=== PATIENT | female | born 1945 | race Caucasian/White ===

== ENCOUNTER 2020-03-18 07:27 | Outpatient (CLI) | payer MEDICARE, SELFPAY ==
[2020-03-18 07:38] LABS: Hematocrit 41.7 % (35.0-42.0); Hemoglobin 14.2 g/dL (11.7-13.8); Mean Corpuscular HGB Conc 34.1 g/dL (32.0-36.0); Mean Corpuscular Hemoglobin 31.3 pg (27.0-31.0); Mean Corpuscular Volume 91.9 fL (78.0-102.0); Platelet Count Result 211 K/mm3 (150-420); Red Blood Count 4.54 M/mm3 (4.20-5.40); White Blood Count 8.2 K/mm3 (4.8-10.8)
[2020-03-18 08:34] LABS: Alanine Aminotransferase 19 U/L (14-59); Albumin Level 3.8 g/dL (3.4-5.0); Alkaline Phosphatase 91 U/L (46-116); Anion Gap 7.3 mmol/L (7-16); Aspartate Amino Transferase 17 U/L (15-37); Bilirubin,Total 0.8 mg/dL (0.00-1.00); Blood Urea Nitrogen 11 mg/dL (7-18); Carbon Dioxide 34 mmol/L (21-32); Chloride 102 mmol/L (98-108); Cholesterol 194 mg/dL (0-200); Estimated Glomerular Filt Rate 60; Glucose 107 mg/dL (70-99); HDL Direct 85 mg/dL (40-60); LDL Cholesterol Calculated 94 mg/dL (<130); Osmolality Calculated 287 mOsm/kg (285-295); Potassium 4.3 mmol/L (3.5-5.1); Sodium 139 mmol/L (136-145); Total Protein 7.2 g/dL (6.4-8.2); Triglycerides 73 mg/dL (0-150)
[2020-03-18 16:29] LABS: Hemoglobin A1C 6.3 % (<5.7)
== END 2020-03-18 07:28 | disposition home or self-care (01) ==
LOC: CHSLAB 07:30
PROVIDERS: PCP Nurse Practitioner Family; Visit Provider Nurse Practitioner Family
DX: I10 Essential (primary) hypertension (principal); E78.5 Hyperlipidemia, unspecified; R73.9 Hyperglycemia, unspecified
CPT/HCPCS: 36415; 80053; 80061; 83036; 85027

== ENCOUNTER 2020-04-23 13:33 | Outpatient (CLI) | payer MEDICARE, MEDICAID, SELFPAY ==
--- NOTE | ~2020-04-23 | MM_ITS ---
EXAMINATION: MM screening [facility] BI w sergio HISTORY: Screening TECHNIQUE: Craniocaudal and mediolateral oblique 3-D tomosynthesis images were obtained and synthetic 2-D images were generated. CAD analysis was submitted and interpreted. COMPARISON: Comparison to multiple prior studies sequentially, with oldest reviewed study dated 03/2014. BREAST PARENCHYMAL COMPOSITION: Breast composed of scattered areas of fibroglandular density FINDINGS: There are benign-appearing bilateral breast calcifications and asymmetries which are not si gnificant change. There is no evidence of suspicious mass, calcification, or architectural distortion to suggest malignancy in either breast. There has been no suspicious interval change. IMPRESSION: 1. No mammographic evidence of malignancy. 2. Recommend routine screening mammography in one year. BI-RADS Category 2: Benign finding(s). Reviewed, dictated and finalized at location A.
== END 2020-04-23 13:34 | disposition home or self-care (01) ==
LOC: CHSIMG 13:35
PROVIDERS: PCP Nurse Practitioner Family; Visit Provider Nurse Practitioner Family
DX: Z12.31 Encounter for screening mammogram for malignant neoplasm of breast (principal)
CPT/HCPCS: 77063; 77067

== ENCOUNTER 2020-06-20 07:30 | Outpatient (CLI) | payer MEDICARE, SELFPAY ==
[2020-06-20 07:56] LABS: Hemoglobin A1C 5.8 % (<5.7)
== END 2020-06-20 07:31 | disposition home or self-care (01) ==
LOC: CHSLAB 07:32
PROVIDERS: PCP Nurse Practitioner Family; Visit Provider Nurse Practitioner Family
DX: R73.9 Hyperglycemia, unspecified (principal)
CPT/HCPCS: 36415; 83036

== ENCOUNTER 2021-04-26 14:22 | Outpatient (CLI) | payer MEDICARE, MEDICAID, SELFPAY ==
--- NOTE | ~2021-04-26 | MM_ITS ---
EXAMINATION: MM screening [facility] BI w sergio HISTORY: Screening TECHNIQUE: Craniocaudal and mediolateral oblique 3-D tomosynthesis images were obtained and synthetic 2-D images were generated. CAD analysis was submitted and interpreted. COMPARISON: Comparison to multiple prior studies sequentially, with oldest reviewed study dated 11/05. BREAST PARENCHYMAL COMPOSITION: There are scattered areas of fibroglandular density. FINDINGS: There is no evidence of suspicious mass, calcification, or architectural distortion to sugg est malignancy in either breast. There has been no suspicious interval change. IMPRESSION: 1. No mammographic evidence of malignancy. 2. Recommend routine screening mammography in one year. BI-RADS Category 2: Benign finding(s). Reviewed, dictated and finalized at location A.
== END 2021-04-26 14:23 | disposition home or self-care (01) ==
PROVIDERS: PCP Nurse Practitioner Family; Visit Provider Nurse Practitioner Family
DX: Z12.31 Encounter for screening mammogram for malignant neoplasm of breast (principal)
CPT/HCPCS: 77063; 77067

== ENCOUNTER 2021-12-10 15:02 | Emergency (ER) | payer MEDICARE, MEDICAID, SELFPAY ==
--- NOTE | ~2021-12-10 | CT_ITS ---
EXAMINATION: CT facial bones wo con DATE: 12/10/2021 15:58 INDICATION: Facial injury and pain TECHNIQUE: Computed tomography (CT) of the facial bones and maxillofacial region was performed withou t intravenous contrast. The dose-length product (DLP) was 283.62 mGy-cm. Automated exposure control a nd iterative reconstruction technique were employed. COMPARISON: None. FINDINGS: There is a left frontal scalp and periorbital soft tissue hematoma. No facial bone fracture is identified. The calvarium is intact. The globes are unremarkable. 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 The visualized cervical spine is unremarkable. There is mild mucosal t hickening of the maxillary sinuses. IMPRESSION: 1. Left frontal scalp and periorbital soft tissue hematoma without facial bone fracture. Reviewed, dictated and finalized at location B.
[2021-12-10 15:05] VITALS: BP 152/64; PULSE 102; RESP 20; TEMP 36.4; O2SAT 98
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
[2021-12-10] MEDS: TETANUS,DIPHTHERIA,AC PERTUSSIS ADULT 0.5 ML (ADACEL) IM (16:04)
[2021-12-10] MEDS: LIDO 1%/EPINEPHRINE 1:100,000 20 ML VIAL INFILTRATE (16:26)
[2021-12-10 16:28] VITALS: BP 148/75; PULSE 74; RESP 20; TEMP 36.3; O2SAT 97
== END 2021-12-10 16:30 | disposition home or self-care (01) ==
PROVIDERS: Emergency Provider Emergency Medicine; PCP Nurse Practitioner Family
DX: S81.012A Laceration without foreign body, left knee, initial encounter (principal); S00.81XA Abrasion of other part of head, initial encounter; W19.XXXA Unspecified fall, initial encounter
CPT/HCPCS: 12001; 70486; 90471; 90715; 99284

== ENCOUNTER 2022-04-29 12:34 | Outpatient (CLI) | payer MEDICARE, MEDICAID, SELFPAY ==
--- NOTE | ~2022-04-29 | MM_ITS ---
EXAMINATION: MM screening [facility] BI w sergio HISTORY: Screening mammogram TECHNIQUE: Craniocaudal and mediolateral oblique 3-D tomosynthesis images were obtained and synthetic 2-D images were generated. CAD analysis was submitted and interpreted. COMPARISON: 04/26/2021, 04/23/2020 bilateral screening mammogram examinations BREAST PARENCHYMAL COMPOSITION: There are scattered areas of fibroglandular density. FINDINGS: Scattered bilateral benign calcifications are again noted. There are 2 stable low-density c ircumscribed approximately 3.5 mm opacities in the posterior upper outer right breast, likely stable benign intramammary lymph nodes. There is no evidence of suspicious mass, calcification, or lead technical architect ural distortion to suggest malignancy in either breast. There has been no suspicious interval change. IMPRESSION: 1. No mammographic evidence of malignancy. 2. Recommend routine screening mammography in one year. BI-RADS Category 2: Benign finding(s). Reviewed, dictated and finalized at location A.
== END 2022-04-29 12:35 | disposition home or self-care (01) ==
LOC: CHSIMG 12:37
PROVIDERS: PCP Nurse Practitioner Family; Visit Provider Nurse Practitioner Family
DX: Z12.31 Encounter for screening mammogram for malignant neoplasm of breast (principal)
CPT/HCPCS: 77063; 77067

== ENCOUNTER 2023-04-01 13:27 | Emergency (ER) | payer MEDICARE, MEDICAID, SELFPAY ==
[2023-04-01 13:28] VITALS: BP 160/63; PULSE 73; RESP 18; TEMP 36.4; O2SAT 96
--- NOTE | 2023-04-01 13:36 | ECG_ITS ---
Measurements Intervals [place] Rate: 83 P: 67 SC: 180 QRS: -17 QRSD: 150 T: 101 QT: 401 QTc: 472 Interpretive Statements SINUS RHYTHM LEFT BUNDLE BRANCH BLOCK [120+ ms QRS DURATION, 80+ ms Q/S IN V1/V2, 85+ ms R IN I/aVL/V5/V6] ABNORMAL ECG NO PREVIOUS ECG AVAILABLE FOR COMPARISON Electronically Signed On 04-03-2023 7:37:17 CDT by Eb Etienne M.D.
[2023-04-01 14:04] LABS: Basophils Absolute Auto 0.05 K/mm3 (0.00-0.10); Basophils Percent Auto 0.5 % (0.0-1.0); Eosinophils Absolute Auto 0.08 K/mm3 (0.02-0.50); Eosinophils Percent Auto 0.8 % (1.0-6.0); Hematocrit 42.6 % (35.0-42.0); Hemoglobin 14.5 g/dL (11.7-13.8); Immature Granulocyte Absolute 0.03 K/mm3 (0.00-0.00); Immature Granulocyte Percent A 0.3 % (0.0-0.0); Lymphocytes Absolute Auto 2.17 K/mm3 (1.10-4.50); Lymphocytes Percent Auto 21.2 % (18.0-42.0); Monocytes Percent Auto 5.9 % (2.0-11.0); Neutrophils Absolute Auto 7.3 K/mm3 (1.7-7.2); Neutrophils Percent Auto 71.3 % (50.0-70.0); Platelet Count Result 196 K/mm3 (150-420); Red Blood Count 4.53 M/mm3 (4.20-5.40); Red Cell Distribution Width 12.2 % (11.6-14.4); White Blood Count 10.2 K/mm3 (4.8-10.8)
[2023-04-01 14:21] LABS: Albumin Level 3.5 g/dL (3.4-5.0); Alkaline Phosphatase 95 U/L (46-116); Anion Gap 9 mmol/L (8-16); Aspartate Amino Transferase 13 U/L (15-37); Bilirubin,Total 0.8 mg/dL (0.00-1.00); Blood Urea Nitrogen 15 mg/dL (7-18); Carbon Dioxide 28 mmol/L (21-32); Chloride 101 mmol/L (98-108); Estimated CRCL calculation 46 ml/min; Estimated Glomerular Filt Rate 59; Glucose 235 mg/dL (70-99); Osmolality Calculated 294 mOsm/kg (285-295); Sodium 138 mmol/L (136-145); Total Protein 6.9 g/dL (6.4-8.2)
[2023-04-01 14:24] LABS: Alanine Aminotransferase < 6 U/L (14-59)
--- NOTE | 2023-04-01 14:26 | ED.GENADULT ---
HPI - General Adult General Chief complaint: Unspecified Stated complaint: Syncope Time Seen by Provider: 04/01/23 13:31 Source: patient and family Mode of arrival: ambulatory Limitations: no limitations History of Present Illness HPI narrative: this is 77-year-old female presents by private car family at her side after she had a syncopal episode lasting less than a minute and immediately returned to baseline with no residual affects no headache no blurry vision no chest pain no shortness breath no fever chills no abdominal pain, no dysuria no hematuria no nausea vomiting no diarrhea or constipation. Patient has a history of hypertension history of diabetes. Her Onset (ago): hour(s) Related Data Allergies Allergy/AdvReac Type Severity Reaction Status Date / Time No Known Allergies Allergy Verified 08/11/22 10:20 Review of Systems Review of Systems: All systems reviewed & are unremarkable except as noted in HPI and below PMFSH Past Medical History Medical History (Updated 04/01/23 @ 14:30 by Eb Stringer MD) HTN (hypertension) Hyperlipidemia Overweight (BMI 25.0-29.9) Seasonal allergies Surgical History Surgical History History of total replacement of right shoulder joint Hx of colonoscopy Family History Family History Mother Family history of coronary artery disease Father Family history of malignant neoplasm of bone Social History Social History Smoking status: Never smoker Tobacco type: cigarettes Alcohol intake: never Substance use: never Substance use type: does not use Lack of Transportation: No Lack of Food: Never True Current Housing: I Have Housing Concerned About Future Housing: No Difficulty Paying Gas/Electric Bills: No Difficulty Paying for Meds: No Currently Unemployed: YES Education: Grade School Difficulty w/ Childcare or Family Care: No Living arrangements: alone Occupation/Education: unemployed Gender identity (if verbalized by the patient): Female Sexual Orientation (if Verbalized by the Patient): Straight or Heterosexual Exam Const: General: cooperative, healthy appearing, comfortable, no acute distress, well developed, alert, awake and Physically active HENMT: Head: normal to inspection Mouth: Yes Normal oral and palatal mucosa present Eyes: General: appearance normal, both eyes and all related structures Periorbital: periorbital findings normal Eyelids: eyelids normal Conjunctivae: conjunctivae normal Sclera: sclerae normal Pupils: Equal, round and reactive pupils present EOM: EOMs intact bilaterally Neck: Neck: normal visual inspection, full ROM, no lymphadenopathy and no meningeal signs Chest: Chest palpation & inspection: normal inspection of the chest and normal palpation of entire chest wall Resp: Effort & Inspection: normal respiratory effort and able to speak in complete sentences Auscultation: clear to auscultation bilaterally Cardio: Jugular venous distension: no JVD Palpation: normal PMI Rate: regular rate Rhythm: regular rhythm Heart sounds: S1 normal heart sound present and S2 normal heart sound present GI: Inspection: normal to inspection : General: Yes bimanual renal exam normal bilaterally Skin: General skin exam: normal color and no rashes or lesions noted Neuro: General: oriented to person, oriented to place and oriented to time Extrem: General: normal to inspection, full ROM and capillary refill normal Psych: Appearance: grossly normal Mental Status: mental status grossly normal Course Course Emergency Course: patient back to her baseline with no residual affect currently no chest pain no shortness of breath labs reviewed an EKG reviewed with patient and family. Vital Signs Vital signs: Vital Signs Temperature 36.4 C 0
[2023-04-01 14:32] VITALS: BP 148/42; PULSE 76; RESP 19; O2SAT 96
== END 2023-04-01 14:40 | disposition home or self-care (01) ==
PROVIDERS: Emergency Provider Emergency Medicine; PCP Nurse Practitioner Family
DX: R55 Syncope and collapse (principal); E11.9 Type 2 diabetes mellitus without complications; I10 Essential (primary) hypertension; E78.5 Hyperlipidemia, unspecified
CPT/HCPCS: 36415; 80053; 83036; 85025; 93005; 99283

== ENCOUNTER 2023-04-11 15:26 | Outpatient (CLI) | payer MEDICARE, SELFPAY ==
[2023-04-16 13:00] LABS: Varicella IgG Antibody <135.00 Index (>=165.00)
== END 2023-04-11 15:27 | disposition home or self-care (01) ==
LOC: CHSLAB 15:28
PROVIDERS: PCP Nurse Practitioner Family; Visit Provider Nurse Practitioner Family
DX: Z01.84 Encounter for antibody response examination (principal)
CPT/HCPCS: 36415; 86787

== ENCOUNTER 2023-05-03 09:21 | Outpatient (CLI) | payer MEDICARE, MEDICAID, SELFPAY ==
--- NOTE | ~2023-05-03 | MM_ITS ---
EXAMINATION: MM screening [facility] BI w sergio HISTORY: Screening TECHNIQUE: Craniocaudal and mediolateral oblique 3-D tomosynthesis images were obtained and synthetic 2-D images were generated. CAD analysis was submitted and interpreted. COMPARISON: Comparison to multiple prior studies sequentially, with oldest reviewed study dated 11/05. BREAST PARENCHYMAL COMPOSITION: Breast composed of scattered areas of fibroglandular density FINDINGS: Stable appearance to benign-appearing right breast masses dating back to 11/05/2018. There i s no evidence of suspicious mass, calcification, or architectural distortion to suggest malignancy in either breast. There has been no suspicious interval change. IMPRESSION: 1. No mammographic evidence of malignancy. 2. Recommend routine screening mammography in one year. BI-RADS Category 2: Benign finding(s). Reviewed, dictated and finalized at location A.
== END 2023-05-03 09:22 | disposition home or self-care (01) ==
LOC: CHSIMG 09:22
PROVIDERS: PCP Nurse Practitioner Family; Visit Provider Nurse Practitioner Family
DX: Z12.31 Encounter for screening mammogram for malignant neoplasm of breast (principal)
CPT/HCPCS: 77063; 77067

== ENCOUNTER 2023-09-20 07:19 | Outpatient (CLI) | payer MEDICARE, SELFPAY ==
[2023-09-20 07:35] LABS: Basophils Absolute Auto 0.04 K/mm3 (0.00-0.10); Basophils Percent Auto 0.5 % (0.0-1.0); Eosinophils Absolute Auto 0.23 K/mm3 (0.02-0.50); Eosinophils Percent Auto 3.1 % (1.0-6.0); Hemoglobin 13.6 g/dL (11.7-13.8); Immature Granulocyte Absolute 0.01 K/mm3 (0.00-0.00); Immature Granulocyte Percent A 0.1 % (0.0-0.0); Lymphocytes Percent Auto 30.5 % (18.0-42.0); Mean Corpuscular HGB Conc 33.2 g/dL (32.0-36.0); Mean Corpuscular Hemoglobin 30.6 pg (27.0-31.0); Mean Corpuscular Volume 92.3 fL (78.0-102.0); Mean Platelet Volume 10.1 fl (9.2-11.8); Monocytes Absolute Auto 0.72 K/mm3 (0.10-0.90); Monocytes Percent Auto 9.5 % (2.0-11.0); Neutrophils Absolute Auto 4.2 K/mm3 (1.7-7.2); Neutrophils Percent Auto 56.3 % (50.0-70.0); Platelet Count Result 201 K/mm3 (150-420); Red Blood Count 4.44 M/mm3 (4.20-5.40); Red Cell Distribution Width 12.2 % (11.6-14.4); White Blood Count 7.5 K/mm3 (4.8-10.8)
[2023-09-20 07:44] LABS: Hemoglobin A1C 5.7 % (<5.7)
[2023-09-20 08:16] LABS: Alanine Aminotransferase 21 U/L (14-59); Albumin Level 3.5 g/dL (3.4-5.0); Alkaline Phosphatase 95 U/L (46-116); Anion Gap 7 mmol/L (8-16); Aspartate Amino Transferase 13 U/L (15-37); Bilirubin,Total 0.8 mg/dL (0.00-1.00); Blood Urea Nitrogen 14 mg/dL (7-18); Calcium 8.7 mg/dL (8.5-10.1); Carbon Dioxide 31 mmol/L (21-32); Chloride 101 mmol/L (98-108); Cholesterol 198 mg/dL (0-200); Estimated Glomerular Filt Rate > 60; Glucose 100 mg/dL (70-99); HDL Direct 104 mg/dL (40-60); LDL Cholesterol Calculated 83 mg/dL (<130); Osmolality Calculated 288 mOsm/kg (285-295); Sodium 139 mmol/L (136-145); Triglycerides 57 mg/dL (0-150)
[2023-09-22 12:22] LABS: Vitamin D 25 Hydroxy 22 ng/mL (30-100)
== END 2023-09-20 07:20 | disposition home or self-care (01) ==
LOC: CHSLAB 07:20
PROVIDERS: PCP Nurse Practitioner Family; Visit Provider Nurse Practitioner Family
DX: E78.5 Hyperlipidemia, unspecified (principal); Z13.6 Encounter for screening for cardiovascular disorders; E11.9 Type 2 diabetes mellitus without complications; I10 Essential (primary) hypertension; Z79.899 Other long term (current) drug therapy
CPT/HCPCS: 36415; 80053; 80061; 82306; 83036; 85025

== ENCOUNTER 2023-10-12 13:18 | Outpatient (CLI) | payer MEDICARE, MEDICAID, SELFPAY ==
--- NOTE | ~2023-10-12 | DEXA_ITS ---
Bone Density Report Name: YUNIOR ALVAREZ Age: 78 Sex: Female Ethnicity: White Date of : 1945 Indication: postmenopausal; screening for osteoporosis; height loss; Referring Provider: Mikaela Gardner Study: Bone densitometry was performed. Exam Date: October 12, 2023 Accession number: [id number] Bone Density: Region BMD T-score Z-score Classification AP Spine(L2, L3, L4) 0.940 -1.3 1.3 Osteopenia Femoral Neck (Left) 0.626 -2.0 0.2 Osteopenia Total Hip (Left) 0.655 -2.3 -0.5 Osteopenia Femoral Neck (Right) 0.653 -1.8 0.4 Osteopenia Total Hip (Right) 0.708 -1.9 0.0 Osteopenia Femoral Neck Mean 0.640 -1.9 0.3 Osteopenia Total Hip Mean 0.681 -2.1 -0.2 Osteopenia World Health Organization criteria for BMD impression classify patients as: Normal (T-score at or above -1.0), Osteopenia (T-score between -1.0 and -2.5), or Osteoporosis (T-score at or below -2.5). 10-year Fracture Risk(1): Major Osteoporotic Fracture 13% Hip Fracture 3.5% Reported Risk Factors: [place] (), Neck BMD=0.626, BMI=22.4 (1) FRAX(R) Version 3.08. Fracture probability calculated for an untreated patient. Fracture probability may be lower if the patient has received treatment. Clinical Information Provided by Patient: Has used the following medications: Vitamin D Patient maximum height was 69 Menopause Age: 51 No regular weight bearing exercise Drinks caffeinated beverages Onset of menses at age 15 Number of children 0 Impression: The patient has low bone mass, based on the Left Total Hip T-score. Discussion: BONE DENSITY IS LOW AT ONE OR MORE SKELETAL SITES. This patient's lowest T-score is low at one or more skeletal sites. It meets the World Health Organization's (WHO) criteria for ?low bone mass? (T-score between -1.0 and -2.5). The patient's 10-year risk of fracture as calculated by FRAX is less than the threshold where pharmacological therapy is recommended by the National Osteoporosis Foundation (NOF). However, all treatment decisions require clinical judgment and consideration of individual patient factors, including patient preferences, comorbidities, previous drug use, risk factors not captured in the FRAX model (e.g., frailty, falls, vitamin D deficiency, increased bone turnover, interval significant decline in bone density) and possible under or overestimation of fracture risk by FRAX. The patient should follow a healthful lifestyle (good nutrition with adequate calcium and vitamin D, and appropriate weight-bearing exercise). Follow-Up: Consider repeating this study in 2 to 3 years to reassess this patient's status, or sooner if there is some new clinical indication. Reported by: Dr. Sylvester Chaudhry on 10/12/2023 1:40:00 PM. Reviewed, dictated and finalized at location A.
== END 2023-10-12 13:19 | disposition home or self-care (01) ==
LOC: CHSIMG 13:19
PROVIDERS: PCP Nurse Practitioner Family; Visit Provider Nurse Practitioner Family
DX: Z78.0 Asymptomatic menopausal state (principal); M85.89 Other specified disorders of bone density and structure, multiple sites
CPT/HCPCS: 77080

== ENCOUNTER 2024-05-08 08:15 | Outpatient (CLI) | payer MEDICARE, MEDICAID, SELFPAY ==
--- NOTE | ~2024-05-08 | MM_ITS ---
EXAMINATION: MM screening [facility] BI w sergio HISTORY: Screening TECHNIQUE: Craniocaudal and mediolateral oblique 3-D tomosynthesis images were obtained and synthetic 2-D images were generated. CAD analysis was submitted and interpreted. COMPARISON: Comparison to multiple prior studies sequentially, with oldest reviewed study dated 12/2018. BREAST PARENCHYMAL COMPOSITION: Not dense: There are scattered areas of fibroglandular density. FINDINGS: There is no evidence of suspicious mass, calcification, or architectural distortion to sugg est malignancy in either breast. There has been no suspicious interval change. IMPRESSION: 1. No mammographic evidence of malignancy. 2. Recommend routine screening mammography in one year. BI-RADS Category 1: Negative Reviewed, dictated and finalized at location B.
== END 2024-05-08 08:16 | disposition home or self-care (01) ==
LOC: CHSIMG 08:16
PROVIDERS: PCP Nurse Practitioner Family; Visit Provider Nurse Practitioner Family
DX: Z12.31 Encounter for screening mammogram for malignant neoplasm of breast (principal)
CPT/HCPCS: 77063; 77067

== ENCOUNTER 2024-07-23 14:23 | Emergency (ER) | payer MEDICARE, MEDICAID, SELFPAY ==
[2024-07-23] VITALS (12 sets, daily range): BP systolic 127–155; BP diastolic 54–77; PULSE 62–96; RESP 15–20; TEMP 37.1–37.8; O2SAT 97–100
--- NOTE | ~2024-07-23 | CT_ITS ---
EXAMINATION: CT brain wo con DATE: 07/23/2024 16:13 INDICATION: syncope . TECHNIQUE: Computed tomography (CT) of the head was performed without intravenous contrast. The mA wa s adjusted according to patient size. Iterative reconstruction technique was employed. The dose-lengt h product was 681.00 mGy-cm. COMPARISON: CT face 12/10/21. FINDINGS: No acute intracranial hemorrhage. 7 mm hyperdensity extra-axial focus anterior to the left frontal lo be. No hydrocephalus, mass, or herniation. No acute ischemic infarct. Unremarkable dural venous sinus attenuation. No acute osseous abnormality. The aerated spaces are clear. Mild atrophy and chronic white matter change. Atherosclerotic intracranial calcification. IMPRESSION: Small volume subarachnoid hemorrhage anterior to the left frontal lobe. Results reported telephonically to Dr. Ferguson by Dr. Bernard at 4:21 PM on 07/23/2024. Reviewed, dictated and finalized at location K. NG CONSULTANT IMPRESSION: Small volume subarachnoid hemorrhage anterior to the left frontal lobe. Results reported telephonically to Dr. Ferguson by Dr. Bernard at 4:21 PM on 2023.
--- NOTE | ~2024-07-23 | XR_ITS ---
EXAMINATION: XR chest 2V Exam Date/Time: 07/23/2024 16:00 ADMISSIONS DEAN HISTORY: syncopal episode Comparison: None. RESULT: Lines, tubes, and devices: Partially visualized right shoulder hardware. Lungs and pleura: Senescent change, clear. Cardiomediastinal silhouette: Stable. Other: No acute osseous or upper abdominal finding. IMPRESSION: No acute cardiopulmonary process. Reviewed, dictated and finalized at location K. SSIONS DEAN
--- NOTE | 2024-07-23 15:31 | ED.SYNCOPE ---
HPI - Syncope General Chief Complaint: Syncope Stated Complaint: passed out while sitting in chair Time Seen by Provider: 07/23/24 15:24 Source: patient and family (sister) Mode of arrival: ambulatory Limitations: no limitations History of Present Illness HPI narrative: 78 year old female is brought to the Emergency Department by sister. Sister is primary historian. Sister states patient was sitting at table playing cards and suddenly had blank stare and was not responding and then had syncopal episode. States lasted approximately 5 minutes. Denies any symptoms prior to occurrence. Denies chest pain, shortness of breath, headache, visual changes. No recent illness. No nausea, vomiting, diarrhea. Sister states had a similar occurrence in September and PCP advised was caused by pre-diabetes. Patient has had no history of DKA or hypoglycemia. No history of seizures, TIA, cardiac arrhythmia. MD complaint: loss of consciousness Duration of episode: 5 -: minutes(s) Prodromal symptoms: none Witnessed: Yes - by Bystander Context: at rest (sitting at table playing cards) Injuries sustained associated with event: none Current symptoms: none Related Data Allergies Allergy/AdvReac Type Severity Reaction Status Date / Time No Known Allergies Allergy Verified 07/23/24 14:52 Review of Systems Review of Systems: All systems reviewed & are unremarkable except as noted in HPI and below Constitutional: Constitutional: Reports as per HPI, Denies chills, Denies fatigue, Denies fever(s) and Denies weakness Eyes: Eyes: Reports as per HPI and Denies change in vision ENT: Reports system reviewed and no additional complaints, except as documented, Denies vertigo, Denies dizziness and Denies sore throat Cardiovascular: Cardiovascular: Reports as per HPI, Reports no additional cardiovascular complaints, Denies chest pain, Denies rapid heart rate and Denies slow heart rate Respiratory: Respiratory: Reports as per HPI, Reports no additional respiratory complaints, Denies chest congestion, Denies cough and Denies dyspnea Gastrointestinal: Gastrointestinal: Reports as per HPI, Reports no additional gastrointestinal complaints, Denies abdominal pain, Denies constipation, Denies diarrhea, Denies nausea and Denies vomiting Genitourinary: Genitourinary: Reports no additional female genitourinary complaints, Denies hematuria, Denies nocturia and Denies dysuria Musculoskeletal: Musculoskeletal: Reports no additional musculoskeletal complaints and Denies myalgias Integumentary/Breasts: Skin/Breast: Reports system reviewed and no additional complaints, except as docu Neurologic: Reports system reviewed and no additional complaints, except as documented, Reports as per HPI, Denies confusion, Denies vertigo, Denies dizziness, Reports syncope, Denies headache(s), Denies focal weakness, Denies numbness and Denies weakness Psychiatric: Psychiatric: Reports no additional psychiatric complaints Endocrine: Endocrine: Reports no additional endocrine complaints Hematologic/Lymphatic: Hematologic/Lymphatic: Reports no additional hematologic/lymphatic complaints Allergic/Immunologic: Allergic/Immunologic: Reports no additional allergic/immunologic complaints PMFSH Past Medical History Medical History (Updated 07/23/24 @ 18:16 by Fausto Ferguson MD) Overweight (BMI 25.0-29.9) Seasonal allergies Hyperlipidemia HTN (hypertension) Surgical History Surgical History Hx of colonoscopy History of total replacement of right shoulder joint Family History Family History Mother Family history of coronary artery disease Father Family history of malignant neoplasm of bone Sibling Cerebrovascular accident Social History Social History Smoking status: Never smoker Tobacco type: cigarettes Alcohol intake: never Substance use: never Substance use type: does not use Lack of Transportation: No Lack of Food: Never True Current Housing: I Have Housing Concerned About Future Housing: No Difficulty Paying Gas/Electric Bills: No Difficulty Paying for Meds: No Currently Unemployed: YES Education: Grade School Difficulty w/ Childcare or Family Care: No Living arrangements: alone Occupation/Education: unemployed Gender identity (if verbalized by the patient): Female Sexual Orientation (if Verbalized by the Patient): Straight or Heterosexual Exam Const: General: healthy appearing, no acute distress and alert Nutritional Appearance: well nourished Orientation/consciousness: patient oriented x3 Limitations: no limitations HENMT: Head: normal to inspection Ears: external ears normal Face/Nose/Sinus: Normal external nose present Face and sinus: normal facial exam Mouth: Yes Normal oral and palatal mucosa present Throat: posterior oropharynx normal Eyes: Conjunctivae: conjunctivae normal Pupils: Equal, round and reactive pupils present EOM: EOMs intact bilaterally Direct Ophthalmoscopy: no photophobia Neck: Neck: normal visual inspection and no meningeal signs Other: no JVD or bruit Chest: Chest palpation & inspection: normal inspection of the chest Resp: Effort & Inspection: normal respiratory effort Auscultation: clear to auscultation bilaterally Cardio: Rate: regular rate Rhythm: regular rhythm Heart sounds: no murmurs GI: Inspection: non-distended : General: Yes bladder normal to palpation Back/Spine/Pelvis: Back: no CVA tenderness Skin: General skin exam: normal color Rashes: no rashes Neuro: General: patient oriented x3, moves all extremities, no meningeal signs, no focal motor deficits and CN's II-XI intact bilaterally Cranial nerves: Yes Nystagmus not present Speech: normal speech Gait exam (Neuro): Normal gait present Extrem: General: normal to inspection and no clubbing, cyanosis or edema Psych: Mental Status: mental status grossly normal Course Course Emergency Course: 78 y/o female is brought to the ED by sister. Patient was sitting at card table playing cards and had a blank stare and then syncopal episode. Episode lasted 5 minutes per sister. Patient denies any symptoms prior and denies any symptoms now. Sister states had a similar episode in Sep 2023 and was told was due to pre-diabetes. PE: no acute findings CBC: H/H 14.6/42.4, Plt 153; wbc 8.3 with 82 S, 7 L, 10 M CMP: Na 133, K 3.9, Cl 94, CO2 28, Glc 124, BUN 12, Cr 0.79; LFT's normal TNI: 15.9 EKG: NSR, 87, diffuse IVCD, NSST Lactic: 1.6 D-dimer: 0.24 UA: 11-20 rbc, 3+ blood, 1+ bacteria CXR: NAD CT Head: small volume 7 mm hyperdensity [SAH] anterior to left frontal lobe Tx: media monitor, pulse ox, saline lock. ([id number]) [facility] transfer contacted. ([id number]) Discussed with Dr. Curtis (Neuro). Report given and patient accepted for transfer and admission to [address] [place] [address] at [facility]. Would like me to give report to Dr. Rudd (Neurosurgery) ([phone]) Bed assigned at [facility], report called, EMS notified of transfer *no EMS available for over 6 hours to transfer. [facility] contacted and will come and transfer. Vital Signs Vital signs: Vital Signs Temperature 37.2 C 07/23/24 14:23 Pulse Rate 86 07/23/24 14:23 Respiratory Rate 20 07/23/24 14:23 Blood Pressure 154/64 H 07/23/24 14:23 Pulse Oximetry 100 07/23/24 14:23 Oxygen Delivery Room Air 07/23/24 14:23 Temperature 37.8 C H 07/23/24 19:55 Pulse Rate 74 07/23/24 19:55 Respiratory Rate 16 07/23/24 19:55 Blood Pressure 146/62 H 07/23/24 19:55 Pulse Oximetry 99 07/23/24 19:55 Oxygen Delivery Room Air 07/23/24 19:55 Transfer Transfered to: Other ([facility]) Transportation: ALS Transfer rationale: Further evaluation and monitoring Evaluation by Neuro /Neurosurgery Accepting physician: Dr. Curtis MDM - Syncope Lab Data 07/23/24 16:32 07/23/24 16:31 Labs: Lab Results 07/23/24 07/23/24 07/23/24 Range/Units 15:51 16:31 16:32 WBC 8.3 (4.8-10.8) K/mm3 RBC 4.61 (4.20-5.40) M/mm3 Hgb 14.6 H (11.7-13.8) g/dL Hct 42.4 H (35.0-42.0) % MCV 92.0 (78.0-102.0) fL MCH 31.7 H (27.0-31.0) pg MCHC 34.4 (32-36) g/dL RDW 12.0 (11.6-14.4) % Plt Count 153 (150-420) K/mm3 MPV 9.7 (9.2-11.8) fl Immature Gran % (Auto) 0.2 H (0.0-0.0) % Neut % (Auto) 81.7 H (50.0-70.0) % Lymph % (Auto) 7.1 L (18.0-42.0) % [place] % (Auto) 10.5 (2.0-11.0) % Eos % (Auto) 0.1 L (1.0-6.0) % Baso % (Auto) 0.4 (0.0-1.0) % Lymph # (Auto) 0.59 L (1.10-4.50) K/mm3 [place] # (Auto) 0.87 (0.10-0.90) K/mm3 Eos # (Auto) 0.01 L (0.02-0.50) K/mm3 Baso # (Auto) 0.03 (0.00-0.10) K/mm3 Abs Immat Gran (auto) 0.02 H (0.00-0.00) K/mm3 Absolute Neuts (auto) 6.80 (1.70-7.20) K/mm3 Absolute Nucleated RBC 0.00 (0.00-0.00) K/mm3 Nucleated RBC % 0.0 (0-0.0) % D-Dimer 0.24 (0.19-0.50) mg/L Sodium 133 L (136-145) mmol/L Potassium 3.9 (3.5-5.1) mmol/L Chloride 94 L (98-108) mmol/L Carbon Dioxide 28 (21-32) mmol/L Anion Gap 11 (4-12) mmol/L BUN 12 (7-18) mg/dL Creatinine 0.79 (0.55-1.02) mg/dL Estim Creat Clear Calc 50 ml/min Estimated GFR > 60 (59 - ) Glucose 124 H (70-99) mg/dL Calculated Osmolality 276 L (285-295) mOsm/kg Lactic Acid 1.6 (0.4-2.0) mmol/L Calcium 9.4 (8.5-10.1) mg/dL Total Bilirubin 0.7 (0.00-1.00) mg/dL AST 19 (15-37) U/L ALT 18 (14-59) U/L Alkaline Phosphatase 91 (46-116) U/L Troponin I 15.9 (0.00-60.4) ng/L Total Protein 7.7 (6.4-8.2) g/dL Albumin 4.0 (3.4-5.0) g/dL Urine Color Light yellow (Yellow) Urine Appearance Clear (Clear) Urine pH 6.0 (5.0-8.0) Ur Specific [place] 1.010 (1.010-1.020) Urine Protein 1+ H (Negative) Urine Glucose (UA) Negative (Negative) Urine Ketones Negative (Negative) Ur Blood (Man) 3+ H (Negative) Urine Nitrate Negative (Negative) Urine Bilirubin Negative (Negative) Urine Urobilinogen 0.2 (0.2-1.0) mg/dL Ur Leukocyte Esterase Negative (Negative) Urine RBC 11-20 H (0-2) /hpf Urine WBC None seen (0-3) /hpf Ur Squamous Epith Cells Few (Few) /hpf Urine Bacteria 1+ H (None) /hpf Discharge Plan Discharge Clinical Impression: Subarachnoid hemorrhage, Episode of syncope Patient Disposition: Acute Care Hospital Condition: Stable Patient Language: Wallisian Prescriptions: No Action diclofenac sodium [Arthritis Pain (diclofenac)] 1 % gel 4 g topical QID Qty: 100 0RF Rx Instructions: apply to single knee, ankle, foot; for foot includes sole/toes/top of foot montelukast 10 mg tablet See Rx Instructions .ROUTE .COMPLEX Qty: 90 3RF Dose Instruction: TAKE 1 TABLET BY MOUTH EVERY DAY Rx Instructions: TAKE 1 TABLET BY MOUTH EVERY DAY losartan 50 mg tablet See Rx Instructions .ROUTE .COMPLEX Qty: 90 3RF Dose Instruction: TAKE 1 TABLET BY MOUTH EVERY DAY Rx Instructions: TAKE 1 TABLET BY MOUTH EVERY DAY pravastatin 10 mg tablet See Rx Instructions .ROUTE .COMPLEX Qty: 90 1RF Dose Instruction: TAKE 1 TABLET BY MOUTH DAILY Rx Instructions: TAKE 1 TABLET BY MOUTH DAILY cholecalciferol (vitamin D3) 1,250 mcg (50,000 unit) capsule See Rx Instructions .ROUTE .COMPLEX Qty: 12 0RF Dose Instruction: TAKE 1 CAPSULE BY MOUTH WEEKLY Rx Instructions: TAKE 1 CAPSULE BY MOUTH WEEKLY amlodipine 10 mg tablet See Rx Instructions .ROUTE .COMPLEX Qty: 90 3RF Dose Instruction: TAKE 1 TABLET BY MOUTH EVERY DAY Rx Instructions: TAKE 1 TABLET BY MOUTH EVERY DAY Follow-up/Referrals: UNKNOWN,DOCTOR [Non-Staff] - Time of Disposition: 18:59
--- NOTE | 2024-07-23 16:27 | ECG_ITS ---
Test Date: 2024-07-23 16:04:27 Measurements Intervals [place] Rate: 87 P: 97 KS: 178 QRS: 73 QRSD: 145 T: 43 QT: 392 QTc: 473 Interpretive Statements SINUS RHYTHM LEFT ATRIAL ENLARGEMENT [-0.15mV P-WAVE IN V1/V2] INTRAVENTRICULAR CONDUCTION DELAY [130+ ms QRS DURATION] No previous ECG available for comparison Electronically Signed On 07-25-2024 16:42:51 [employer] by Josh Andres M.D.
[2024-07-23 16:36] LABS: Basophils Absolute Auto 0.03 K/mm3 (0.00-0.10); Basophils Percent Auto 0.4 % (0.0-1.0); Eosinophils Absolute Auto 0.01 K/mm3 (0.02-0.50); Eosinophils Percent Auto 0.1 % (1.0-6.0); Hematocrit 42.4 % (35.0-42.0); Hemoglobin 14.6 g/dL (11.7-13.8); Immature Granulocyte Absolute 0.02 K/mm3 (0.00-0.00); Immature Granulocyte Percent A 0.2 % (0.0-0.0); Lymphocytes Absolute Auto 0.59 K/mm3 (1.10-4.50); Lymphocytes Percent Auto 7.1 % (18.0-42.0); Mean Corpuscular HGB Conc 34.4 g/dL (32-36); Mean Corpuscular Hemoglobin 31.7 pg (27.0-31.0); Mean Platelet Volume 9.7 fl (9.2-11.8); Monocytes Absolute Auto 0.87 K/mm3 (0.10-0.90); Monocytes Percent Auto 10.5 % (2.0-11.0); Neutrophils Percent Auto 81.7 % (50.0-70.0); Platelet Count Result 153 K/mm3 (150-420); Red Blood Count 4.61 M/mm3 (4.20-5.40); White Blood Count 8.3 K/mm3 (4.8-10.8)
[2024-07-23 16:38] LABS: Add Urine Microscopic? YES; Appearance Urine Clear (Clear); Bilirubin Urine Negative (Negative); Blood Urine 3+ (Negative); Color Urine Light Yellow (Yellow); Glucose Urine UA Negative (Negative); Ketones Urine Negative (Negative); Leukocyte Esterase Ur Negative (Negative); Nitrate Urine Negative (Negative); Protein Urine 1+ (Negative); Urobilinogen Urine 0.2 mg/dL (0.2-1.0)
[2024-07-23 16:49] LABS: D Dimer 0.24 mg/L (0.19-0.50)
[2024-07-23 16:53] LABS: Bacteria Urine 1+ /hpf; Squamous Epithelial Cell Urine Few /hpf (Few); WBC Urine None seen /hpf (0-3)
[2024-07-23 16:55] LABS: Alanine Aminotransferase 18 U/L (14-59); Alkaline Phosphatase 91 U/L (46-116); Anion Gap 11 mmol/L (4-12); Aspartate Amino Transferase 19 U/L (15-37); Bilirubin,Total 0.7 mg/dL (0.00-1.00); Blood Urea Nitrogen 12 mg/dL (7-18); Calcium 9.4 mg/dL (8.5-10.1); Carbon Dioxide 28 mmol/L (21-32); Chloride 94 mmol/L (98-108); Estimated CRCL calculation 50 ml/min; Estimated Glomerular Filt Rate > 60; Glucose 124 mg/dL (70-99); Osmolality Calculated 276 mOsm/kg (285-295); Potassium 3.9 mmol/L (3.5-5.1); Sodium 133 mmol/L (136-145); Total Protein 7.7 g/dL (6.4-8.2); Troponin I 15.9 ng/L (0.00-60.4)
[2024-07-23 16:58] LABS: Lactic Acid Reflex 1.6 mmol/L (0.4-2.0)
--- NOTE | 2024-07-23 19:07 | PC.NURSE ---
report called to [facility] to nurse mikki Archer. pt assigned room 499
--- NOTE | 2024-07-23 19:12 | PC.NURSE ---
[facility] community sports coordinator contacted, no ems transfer crews available. [facility] contact information provided as an option
--- NOTE | 2024-07-23 19:15 | PC.NURSE ---
[facility] contacted, they will contact their admin for approval and call right back
== END 2024-07-23 19:55 | disposition short-term general hospital (02) ==
PROVIDERS: Emergency Provider Emergency Medicine; PCP Nurse Practitioner Family
DX: I60.9 Nontraumatic subarachnoid hemorrhage, unspecified (principal); R55 Syncope and collapse; I10 Essential (primary) hypertension
CPT/HCPCS: 36415; 70450; 71046; 80053; 81001; 83605; 84484; 85025; 85380; 93005; 99285

== ENCOUNTER 2024-11-18 18:30 | Emergency (ER) | payer MEDICARE, MEDICAID, SELFPAY ==
[2024-11-18] VITALS (14 sets, daily range): BP systolic 139–187; BP diastolic 65–86; PULSE 68–84; RESP 13–21; TEMP 36.7; O2SAT 96–100
--- NOTE | ~2024-11-18 | CT_ITS ---
History: Seizure PROCEDURE: CT head without contrast. COMPARISON: 07/23/2024 TECHNIQUE: Axial imaging of the head performed from the skull base to the vertex without IV contrast. Sagittal a nd coronal reformations obtained. DLP: 605 mGy-cm FINDINGS: The ventricles are enlarged. The dilatation of the ventricles is proportional to the degree of sulcal prominence, not uncommon in the senescent brain. Decreased attenuation is identified within the periventricular white matter, likely secondary to micr ovascular ischemic disease, in a patient of this age. There is no mass, mass effect or midline shift. There is no abnormal extra-axial fluid collection or intracranial hemorrhage. Visualized paranasal sinuses are clear. The mastoid air cells are well aerated. No acute displaced fractures within the overlying cranium. Impression: No acute intracranial hemorrhage or suspicious mass effect. Reviewed, dictated and finalized at location A. Impression: No acute intracranial hemorrhage or suspicious mass effect.
--- NOTE | ~2024-11-18 | XR_ITS ---
CHEST RADIOGRAPH CLINICAL HISTORY: SYNCOPE . COMPARISON: 2023 TECHNIQUE: Single portable view of the chest. FINDINGS The cardiomediastinal silhouette is unremarkable. The lungs are clear. IMPRESSION: No focal infiltrate or effusion. Reviewed, dictated and finalized at location A.
--- OUTSIDE RECORDS SUMMARY | 2024-11-18 18:31 | XMS_ITS | Clinical Summary ---
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 Gender Identity Not on file Sexual Orientation Not on file Plan of Treatment Health Maintenance Due Date Last Done Comments DEXA Bone Density 1945 Hepatitis C Virus (HCV) Screening 1945 Zoster Immunization (1 of 2) 1996 Pneumococcal Immunization (50+ years) (2 of 2 - PCV) 04/29/2014 04/29/2013 Respiratory Syncytial Virus (RSV) Immunization (Adult) (1 - 1-dose 75+ series) 2021 SARS-COV-2 Immunization ( season) 2024 05/31/2023, 10/26/2022, 01/04/2022, Additional history exists TdaP Immunization Completed 12/10/2021 Influenza Immunization Completed , 05/31/2023, 06/08/2022, Additional history exists Hepatitis B Immunization Aged Out No longer eligible based on patient's age to complete this topic Meningococcal Immunization (ACWY) Aged Out No longer eligible based on patient's age to complete this topic Rotavirus Immunization Aged Out No lo nger eligible based on patient's age to complete this topic Insurance MEDICARE [place]ICAID [place] Care Teams Sheet Metal Work Furnace Installer Relationship Specialty Start Date End Date Homer Solis MD [address] [place] [id number] PCP - General General Surgery 07/30/24
--- OUTSIDE RECORDS SUMMARY | 2024-11-18 18:32 | XMS_ITS | Clinical Summary ---
Author Organization [facility] Address [address] [place] [address] Care Team Providers Care Agricultural Engineering Teacher Name Role Phone Mikaela Gardner APRN-TECHNOLOGY METHODOLOGY CONSULTANT Primary Care Provid er Source Comments [facility],non-owned Affiliates and Associated Physician Practices is amultiple site organization consisting of ambulatory clinics and hospital sitesin [place], [place], [place]. This disclosure is being madepursuant to the Care Everywhere program and may not contain all information available regarding this patient. Last updated 18.[facility] Allergies No known active allergies Medications * Be aware that medications may not be up to date on this document. Alwaysverify current medications with the patient. Medication Sig Dispensed Refills Start Date End Date Status pravastatin (PRAVACHOL) 10 MG tablet Take 1 (one) tablet by mouth Active montelukast (Singulair) 10 MG tablet Take 1 (one) tablet by mouth at bedtime Active diclofenac sodium (Voltaren) 1 % gel Apply 4 (four) g to affected area 4 times daily as needed Active Cholecalciferol 1.25 MG (66842 UT) Take 1 (one) tablet by mouth every 7 days Active potassium chloride ER (Klor-Con M) 10 MEQ tablet Take 1 (one) tablet by mouth once daily Active levETIRAcetam (Keppra) 500 MG tablet Take 1 (one) tablet by mouth 2 times daily 60 tablet 3 07/25/2024 Active losartan (Cozaar) 25 MG tablet Take 2 (two) tablets by mouth once daily 30 tablet 4 10/08/2024 Active Active Problems Problem Noted Date Diagnosed Date Subarachnoid hemorrhage 07/23/2024 Benign essential HTN 12/05/2016 Hyperlipidemia 12/05/2016 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 Encounters Date Type Department Care Team Description 10/15/2024 Refill [facility] [address] [place] [address] Isabel Curtis MD Med Change Request 10/08/2024 11:00 AM TERMITE RENEWAL INSPECTOR Office Visit [facility] [address] [place] [address] Isabel Curtis MD Seizure (Primary Dx); Benign essential HTN; Subarachnoid hemorrhage; Personal history of cerebral parenchymal hemorrhage 10/08/2024 9:40 AM TERMITE RENEWAL INSPECTOR - 10/08/2024 11:59 PM TERMITE RENEWAL INSPECTOR Hospital Encounter [facility] Imaging [place] [address] [place] [address] Isabel Curtis MD Discharge Disposition: Home or Self Care 09/10/2024 12:40 PM TERMITE RENEWAL INSPECTOR Office Visit [facility] [address] [phone] Isabel Curtis MD Subarachnoid hemorrhage (Primary Dx); Seizure 09/10/2024 Travel from Last 3 Months Family History Medical History Relation Name Comments Cancer Father bone Heart Disease Mother Stroke Sister 1 Heart Disease Sister 2 Relation Name Status Comments Father Mother Sister 1 Sister 2 Social History Tobacco Use Types Packs/Day Years Used Date Smoking Tobacco: Never Tobacco Cessation:Counseling Given: Not Answered Alcohol Use Standard Drinks/Week Comments No 0 (1 standard drink = 0.6 oz pur e alcohol) AUDIT-C Answer Date Recorded Q1: How often do you have a drink containing alcohol? Never 07/25/2024 Q2: How many drinks containi ng alcohol do you have on a typical day when you are drinking? Patient does not drink Q3: How often do you have si x or more drinks on one occasion? Never 07/25/2024 Overall Financial Resource Strain (CARDIA) Answe r Date Recorded How hard is it for you to pa y for the very basics like food, housing, medical care, and heating? Not very hard 07/25/2024 PHQ-2 Answer Date Recorded Patient Health Questionnaire-2 Score 0 07/25/2024 [facility] [place] [facility] - Occupational Stress Questionnaire Answer Date Recorded Do you feel stress - tense, restless, nervous, or anxious, or unable to sleep at night because your mind is troubled all the time - these days? Not at all 07/25/2024 Hunger Vital Sign Answer Date Recorded Within the past 12 months, y ou worried that your food would run out before you got the money to buy more. Never true 07/25/20 24 Within the past 12 months, t he food you bought just didn't last and you didn't have money to get more. Never true 07/25/2024 PRAPARE - Transportation Answer Date Re corded In the past 12 months, has l ack of transportation kept you from medical appointments or from getting medications? No 07/14 In the past 12 months, has l ack of transportation kept you from meetings, work, or from getting things needed for daily living? No 07/25/2024 Housing Stability Vital Sign Answer Dennis e Recorded In the last 12 months, was t here a time when you were not able to pay the mortgage or rent on time? No 07/25/2024 In the past 12 months, how m any times have you moved where you were living? 0 07/25/2024 At any time in the past 12 m [facility], were you homeless or living in a care home (including now)? No 07/25/2024 Sex and Gender Information Value Date Recorded Sex Assigned at Not on file Gender Identity Not on file Sexual Orientation Not on file Last Filed Vital Signs Vital Sign Reading Time Taken Comments Blood Pressure 180/82 10/08/2024 11:04 AM TERMITE RENEWAL INSPECTOR Pulse 100 10/08/2024 11:04 AM TERMITE RENEWAL INSPECTOR Temperature 36.6 C (97.8 F) 07/25/2024 3:26 PM TERMITE RENEWAL INSPECTOR Respiratory Rate 18 10/08/2024 11:04 AM TERMITE RENEWAL INSPECTOR Oxygen Saturation 97% 10/08/2024 11:04 AM TERMITE RENEWAL INSPECTOR Inhaled Oxygen Concentration - - Weight 62.6 kg (138 lb) 10/08/2024 11:04 AM TERMITE RENEWAL INSPECTOR Height 170.2 cm (5' 7 ) 10/08/2024 11:04 AM TERMITE RENEWAL INSPECTOR Body Mass Index 21.61 10/08/2024 11:04 AM TERMITE RENEWAL INSPECTOR Plan of Treatment Upcoming Encounters Date Type Department Care Team (Late st Contact Info) Description 04/08/2025 2:00 PM CDT Office Visit [facility] [address] [place] [address] [place] [address] [place] [address] Health Maintenance Due Date Last Done Comments BONE DENSITY TESTING 1945 MEDICARE AWV 12 MONTHS 1945 HEPATITIS C SCREENING 09/12/1964 DTAP/TDAP/TD VACCINES (1 - Tdap) 1965 PNEUMOCOCCAL VACCINE 50+ (1 of 1 - PCV) 1996 ZOSTER VACCINE (1 of 2) 1996 Respiratory Syncytial Virus (RSV) Vaccine Pt: or over 60 yrs (1 - 1-dose 75+ series) 2021 COVID-19 VACCINE ( - 2023-2 5 season) 2024 DEPRESSION SCREENING 08/14/2024 INFLUENZA VACCINE (Season Ended) 2025 HEPATITIS B VACCINE Aged Out No longe r eligible based on patient's age to complete this topic HIB VACCINE Aged Out No longer eligi ble based on patient's age to complete this topic HPV VACCINE Aged Out No longer eligi ble based on patient's age to complete this topic MENINGOCOCCAL (Group B) VACC INE SHARED DECISION-MAKING Aged Out No longer eligibl e based on patient's age to complete this topic MENINGOCOCCAL GROUPS A/C/Y/W VACCINE Aged Out No longer eligible b ased on patient's age to complete this topic Medical Devices Implanted Type Area Plastic Parts Designer Device Identifier Shelf Expiration Date Model / Serial / Lot Cmpnt Glnd 27mm Std Miah Xtend Metaglene Implanted:Qty: 1 on 12/05/2016 by Raphael Martinez MD at Formerly named [facility] Right: Shoulder [employer] 09/13/2021 1307-60-000 / / [id number] Biostop G Bioresorbable Cement Restrictor Implanted:Qty: 1 on 12/05/2016 by Raphael Martinez MD at Formerly named [facility] Right: Shoulder [employer] 05/13/2018 5463-08-000 / / [id number] Delta Xtend Humeral Pe Cup Implanted:Qty: 1 on 12/05/2016 by Raphael Martinez MD at Formerly named [facility] Right: Shoulder [employer] 09/13/2021 1307-42-206 / / [id number] Sys Shld Tot Arthroplst Rev Implanted:Qty: 1 on 12/05/2016 by Raphael Martinez MD at Formerly named [facility] [employer] S4 DEPUY / / Delta Xtend Locking Metaglene Screw Implanted:Qty: 1 on 12/05/2016 by Raphael Martinez MD at Formerly named [facility] Right: Shoulder [employer] 07/13/2021 1307-90-024 / / [id number] Delta Xtend Locking Metaglene Screw Implanted:Qty: 1 on 12/05/2016 by Raphael Martinez MD at Formerly named [facility] Right: Shoulder [employer] 06/13/2021 1307-90-024 / / [id number] Screw 4.5mm 30mm Shldr Glnd Lck Miah Implanted:Qty: 1 on 12/05/2016 by Raphael Martinez MD at Formerly named [facility] Right: Shoulder [employer] 08/13/2021 1307-90-030 / / [id number] Delta Xtend Glenosphere Implanted:Qty: 1 on 12/05/2016 by Raphael Martinez MD at Formerly named [facility] Right: Shoulder [employer] 09/13/2021 [id number] / / [id number] Screw 4.5mm 30mm Shldr Glnd Lck Miah Implanted:Qty: 1 on 12/05/2016 by Raphael Martinez MD at Formerly named [facility] Right: Shoulder [employer] 09/13/2021 1307-90-030 / / [id number] Cmnt Bone Sst Gnta 40gm Hvisc Implanted:Qty: 1 on 12/05/2016 by Raphael Martinez MD at Formerly named [facility] Right: Shoulder [employer] 05/13/2018 [id number] / / [id number] Cmnt Bone Sst Gnta 40gm Hvisc Implanted:Qty: 1 on 12/05/2016 by Raphael Martinez MD at Formerly named [facility] Right: Shoulder [employer] 05/13/2018 [id number] / / [id number] Delta Xtend Monobloc Hum Epiphysis Implanted:Qty: 1 on 12/05/2016 by Raphael Martinez MD at Formerly named [facility] Right: Shoulder [employer] 07/13/2021 1307-08-100 / / [id number] Procedures Procedure Name Priority Date/Time Associated Diagnosis Comments MRI BRAIN WWO CONTRAST Routine 10/08/2024 10:35 AM TERMITE RENEWAL INSPECTOR Subarachnoid hemorrhage Seizure from Last 3 Months Results * MRI Brain Wwo Contrast (10/08/2024 10:35 AM TERMITE RENEWAL INSPECTOR) Anatomical Region Laterality Modality Head Magnetic Resonan ce 10/08/2024 10:3 7 AM TERMITE RENEWAL INSPECTOR Impressions 10/08/2024 11:02 AM TERMITE RENEWAL INSPECTOR IMPRESSION: Cerebral atrophic changes. No acute infarct. No focal enhancing parenchymal lesion seen. > Interpreting Provider: Julia Robbins MD on 10/08/2024 11:02 AM Narrative 10/08/2024 11:02 AM TERMITE RENEWAL INSPECTOR PROCEDURE: MRI BRAIN WWO CONTRAST, DATE/TIME OF EXAM: 10/08/2024 10:36 AM, LOCATION [facility] INDICATION: I60.9: Nontraumatic subarachnoid hemorrhage, unspecified (HCC) R56.9: Unspecified convulsions (HCC) ADDITIONAL CLINICAL INFORMATION: Ordering Provider Reason For Exam: Technologist Note: Additional: COMPARISON: None. TECHNIQUE: MRI of the brain was performed without and with contrast. CONTRAST: GADOTERATE MEGLUMINE 0.5 MMOL/ML IV SSM SO:15 mL FINDINGS: Nonspecific foci of subcortical white matter hyperintensity.Brain parenchymal signal intensity is otherwise normal. Velázquez-white matter differentiation is normal. No diffusion restriction to suggest acute infarct is seen. No evidence of hemorrhage is seen on gradient sequence. Prominent ventricles and cerebral sulci, consistent with cerebral atrophy Midline structures are not displaced. No abnormal enhancement is seen. No mass or mass effect is seen. Vascular flow-voids are normal. Mucosal thickening involving bilateral maxillary sinuses. Minimal right mastoid effusion.. The calvarium has normal marrow signal intensity. Procedure Note Julia Robbins MD - 10/08/2024 PROCEDURE: MRI BRAIN WWO CONTRAST, DATE/TIME OF EXAM: 10/08/2024 10:36AM, LOCATION [facility] INDICATION: I60.9: Nontraumatic subarachnoid hemorrhage, unspecified (HCC) R56.9: Unspecified convulsions (HCC) ADDITIONAL CLINICAL INFORMATION: Ordering Provider Reason For Exam: Technologist Note: Additional: COMPARISON: None. TECHNIQUE: MRI of the brain was performed without and with contrast. CONTRAST: GADOTERATE MEGLUMINE 0.5 MMOL/ML IV SSM SO:15 mL FINDINGS: Nonspecific foci of subcortical white matterhyperintensity.Brain parenchymal signal intensity is otherwise normal. Velázquez-white matter differentiation is normal. No diffusion restriction to suggest acute infarct is seen. No evidence of hemorrhage is seen on gradient sequence. Prominent ventricles and cerebral sulci, consistent with cerebralatrophy Midline structures are not displaced. No abnormal enhancement is seen.No mass or mass effect is seen. Vascular flow-voids are normal. Mucosal thickening involving bilateral maxillary sinuses. Minimal right mastoid effusion.. The calvarium has normal marrow signal intensity. IMPRESSION: Cerebral atrophic changes. No acute infarct. No focalenhancing parenchymal lesion seen. > Interpreting Provider: Julia Robbins MD on 10/08/2024 11:02 AM Isabel Curtis MD MR ORDERABLES from Last 3 Months Advance Directives Documents on File Type Date Recorded Patient Inside Sales Manager Expl anation Adv Directive/Living Will/POA 12/07/2016 10:12 PM * Full Code (Latest Code Status on File) Date Activated Date Inactivated Comments 07/23/2024 8:57 PM 07/25/2024 5:41 PM * Full Code Date Activated Date Inactivated Comments 12/06/2016 1:24 AM 12/06/2016 11:23 AM Care Teams Agricultural Engineering Teacher Relationship Specialty Start Date End Date Mikaela Gardner, COMMODITY DIRECTOR-TECHNOLOGY METHODOLOGY CONSULTANT [address] [place] [address] PCP - General Nurse Practitioner Family 10/08/24
--- NOTE | 2024-11-18 18:45 | ED_ITS ---
HPI - General Adult General Chief complaint: Seizure Stated complaint: syncope Time Seen by Provider: 11/18/24 18:45 Source: patient, family and EMS Mode of arrival: EMS History of Present Illness HPI narrative: 79 YEARS OLD WHITE FEMALE CAME TO THE EMERGENCY ROOM BY AMBULANCE FROM [facility] BECAUSE OF BLACKING OUT. HER SISTER IS TELLING ME THAT PATIENT WAS SITTING EATING AND SUDDENLY BLACKED OUT, UNKNOWN DURATION. CURRENTLY PATIENT IS AWAKE, ALERT ORIENTED X3, DOES NOT KNOW THE NAME OF THE PRESIDENT. SHE DENIES ANY FEVER, CHILLS, NAUSEA, VOMITING, HEADACHE, FOCAL NEURO DEFICITS, CHEST PAIN OR SHORTNESS OF BREATH. HER SISTER REPORTS THAT PATIENT HAD 2 EPISODES OF SYNCOPE IN THE PAST 1ST 1 1 YEAR AGO OF UNKNOWN ETIOLOGY THE 2ND 1 WAS JULY 2024, CT SCAN OF THE HEAD SHOWED SMALL VOLUME SUBARACHNOID HEMORRHAGE. PATIENT WAS TRANSFERRED TO [facility] AND WAS TOLD THAT THERE IS NO BLEED AND GOT DISCHARGE POSSIBLY ON ANTI SEIZURE MEDICATION. THE PATIENT AND HER SISTER ARE NOT SURE. ACCORDING TO PATIENT'S FAMILY THAT PATIENT DID NOT HAVE ANY CONFUSION AFTER WAKING UP FROM THE SYNCOPE, DID NOT BITE HER TONGUE OR URINATION. Related Data Home Medications ?Medication ?Instructions ?Recorded ?Confirmed ?Last Taken ?Type levetiracetam 250 mg tablet 500 mg PO Q12H 08/02/24 Unknown History potassium chloride 10 mEq 10 meq PO DAILY 08/02/24 Unknown History capsule,extended release Allergies Allergy/AdvReac Type Severity Reaction Status Date / Time No Known Allergies Allergy Verified 11/18/24 18:42 Review of Systems 2 Review of Systems: All systems reviewed & are unremarkable except as noted in HPI and below PMFSH Past Medical History Medical History (Updated 11/18/24 @ 21:53 by Hamida Goldberg MD) Overweight (BMI 25.0-29.9) Seasonal allergies Hyperlipidemia HTN (hypertension) Surgical History Surgical History Hx of colonoscopy History of total replacement of right shoulder joint Family History Family History Mother Family history of coronary artery disease Father Family history of malignant neoplasm of bone Sibling Cerebrovascular accident Social History Social History Smoking status: Never smoker Tobacco type: cigarettes Alcohol intake: never Substance use: never Substance use type: does not use Lack of Transportation: No Lack of Food: Never True Current Housing: I Have Housing Concerned About Future Housing: No Difficulty Paying Gas/Electric Bills: No Difficulty Paying for Meds: No Currently Unemployed: YES Education: Grade School Difficulty w/ Childcare or Family Care: No Living arrangements: alone Occupation/Education: unemployed Gender identity (if verbalized by the patient): Female Sexual Orientation (if Verbalized by the Patient): Straight or Heterosexual Exam 2 Narrative: GENERAL APPEARANCE: WELL-DEVELOPED, WELL-NOURISHED SKIN: NORMAL COLOR HEAD: NORMOCEPHALIC, NONTRAUMATIC EYES: CLEAR CONJUNCTIVA ENT: OROPHARYNX NORMAL, EARS NORMAL, NOSE NORMAL NECK: SUPPLE, NONTENDER CHEST AND RESPIRATORY: AIRWAY PATENT, NO RESPIRATORY DISTRESS, NO ACCESSORY MUSCLE USE HEART: REGULAR RATE/RHYTHM ABDOMEN: SOFT, NONTENDER, NO ORGANOMEGALY, QUIET BOWEL SOUNDS VASCULAR: NORMAL PERIPHERAL PULSES, NORMAL CAPILLARY REFILL. MUSCULOSKELETAL: NORMAL RANGE OF MOTION, NONTENDER BACK NEUROLOGIC: ALERT AND ORIENTED ?3, CRIBBER IS NORMAL TESTED, NO GROSS MOTOR DEFICIT Course Consultations Consultation #1: DR WHARTON HOSPITALIST AT [facility] Date: 11/18/24 Time: 21:52 Vital Signs Vital signs: Vital Signs Temperature 36.7 C 11/18/24 18:30 Pulse Rate 73 11/18/24 18:30 Respiratory Rate 16 11/18/24 18:30 Blood Pressure 178/66 H 11/18/24 18:30 Pulse Oximetry 97 11/18/24 18:30 Oxygen Delivery Room Air 11/18/24 18:30 Temperature 36.7 C 11/18/24 18:30 Pulse Rate 73 11/18/24 19:16 Respiratory Rate 16 11/18/24 18:30 Blood Pressure 178/66 H 11/18/24 18:30 Pulse Oximetry 97 11/18/24 18:30 Oxygen Delivery Room Air 11/18/24 18:30 Medical Decision Making Differential Diagnosis Differential Diagnosis: PATIENT CAME TO THE ED WITH SYNCOPE VERSUS SEIZURE, THE WITNESSED DID NOT COME TO THE EMERGENCY ROOM VITAL SIGNS SHOWING BLOOD PRESSURE 178/66 OTHERWISE WITHIN NORMAL LIMIT PHYSICAL EXAMINATION UNREMARKABLE DIFFERENTIAL DIAGNOSIS INCLUDE CARDIAC ARRHYTHMIA, SEIZURE-LIKE ACTIVITIES, INTRACRANIAL BLEED /LESS LIKELY BLOOD WORKUP TODAY INCLUDE CBC, CMP, TROPONIN SODIUM 131, OTHERWISE INSIGNIFICANT ABNORMALITY CHEST X-RAY SHOWED NO ACUTE ABNORMALITIES CT SCAN OF THE HEAD WITHOUT CONTRAST SHOWED NO ACUTE ABNORMALITIES PATIENT FAMILY REQUESTED TO TRANSFER PATIENT TO [facility] PATIENT WAS ACCEPTED FOR TRANSFER, DR. WHARTON THE HOSPITALIST. DIAGNOSIS: SYNCOPE Vital Signs Vital Signs: Vital Signs Temperature 36.7 C 11/18/24 18:30 Pulse Rate 73 11/18/24 18:30 Respiratory Rate 16 11/18/24 18:30 Blood Pressure 178/66 H 11/18/24 18:30 Pulse Oximetry 97 11/18/24 18:30 Oxygen Delivery Room Air 11/18/24 18:30 Temperature 36.7 C 11/18/24 18:30 Pulse Rate 73 11/18/24 19:16 Respiratory Rate 16 11/18/24 18:30 Blood Pressure 178/66 H 11/18/24 18:30 Pulse Oximetry 97 11/18/24 18:30 Oxygen Delivery Room Air 11/18/24 18:30 Lab Data 11/18/24 19:15 11/18/24 19:15 Labs: Lab Results 11/18/24 Range/Units 19:15 WBC 8.2 (4.8-10.8) K/mm3 RBC 4.24 (4.20-5.40) M/mm3 Hgb 13.5 (11.7-13.8) g/dL Hct 39.2 (35.0-42.0) % MCV 92.5 (78.0-102.0) fL MCH 31.8 H (27.0-31.0) pg MCHC 34.4 (32-36) g/dL RDW 11.7 (11.6-14.4) % Plt Count 179 (150-420) K/mm3 MPV 9.6 (9.2-11.8) fl Immature Gran % (Auto) 0.2 H (0.0-0.0) % Neut % (Auto) 66.2 (50.0-70.0) % Lymph % (Auto) 24.0 (18.0-42.0) % [place] % (Auto) 8.7 (2.0-11.0) % Eos % (Auto) 0.4 L (1.0-6.0) % Baso % (Auto) 0.5 (0.0-1.0) % Lymph # (Auto) 1.96 (1.10-4.50) K/mm3 [place] # (Auto) 0.71 (0.10-0.90) K/mm3 Eos # (Auto) 0.03 (0.02-0.50) K/mm3 Baso # (Auto) 0.04 (0.00-0.10) K/mm3 Abs Immat Gran (auto) 0.02 H (0.00-0.00) K/mm3 Absolute Neuts (auto) 5.40 (1.70-7.20) K/mm3 Absolute Nucleated RBC 0.00 (0.00-0.00) K/mm3 Nucleated RBC % 0.0 (0-0.0) % PT 11.0 (9.50-12.1) Seconds INR 1.0 APTT 25.1 (23.9-30.70) Sec Sodium 131 L (136-145) mmol/L Potassium 4.1 (3.5-5.1) mmol/L Chloride 94 L (98-108) mmol/L Carbon Dioxide 32 (21-32) mmol/L Anion Gap 5 (4-12) mmol/L BUN 14 (7-18) mg/dL Creatinine 0.75 (0.55-1.02) mg/dL Estim Creat Clear Calc 53 ml/min Estimated GFR > 60 (59 - ) Glucose 137 H (70-99) mg/dL Calculated Osmolality 274 L (285-295) mOsm/kg Calcium 9.3 (8.5-10.1) mg/dL Total Bilirubin 0.7 (0.00-1.00) mg/dL AST 16 (15-37) U/L ALT 24 (14-59) U/L Alkaline Phosphatase 86 (46-116) U/L Troponin I 16.2 (0.00-60.4) ng/L Total Protein 7.3 (6.4-8.2) g/dL Albumin 3.7 (3.4-5.0) g/dL Imaging Data Radiologist's impression: Impressions Chest X-Ray 11/18/24 20:08 IMPRESSION: No focal infiltrate or effusion. Head CT 11/18/24 20:11 Impression: No acute intracranial hemorrhage or suspicious mass effect. ECG Data EKG #1: Attestation: I personally reviewed and interpreted this ECG as follows: ECG completion date: 11/18/24 Prior ECG tracings: available for review Interpretation: NORMAL SINUS RHYTHM AT 69 BEATS PER MINUTE LEFT ATRIAL ENLARGEMENT LEFT BUNDLE BRANCH BLOCK, ABNORMAL EKG, NO SIGNIFICANT CHANGES COMPARED TO THE LAST EKG ON JULY 23, 2024 Critical Care Time Critical Care Time Critical Care Time: No Discharge Plan Discharge Clinical Impression: Syncope Patient Disposition: Acute Care Hospital Condition: Improved Patient Language: Panamanian Prescriptions: No Action diclofenac sodium [Arthritis Pain (diclofenac)] 1 % gel 4 g topical QID Qty: 100 0RF Rx Instructions: apply to single knee, ankle, foot; for foot includes sole/toes/top of foot levetiracetam 250 mg tablet 500 mg PO Q12H Rx Instructions: 1 tablet by mouth BID potassium chloride 10 mEq capsule, extended release 10 meq PO DAILY cholecalciferol (vitamin D3) 1,250 mcg (50,000 unit) capsule See Rx Instructions .ROUTE .COMPLEX Qty: 12 3RF Dose Instruction: TAKE 1 CAPSULE BY MOUTH WEEKLY Rx Instructions: TAKE 1 CAPSULE BY MOUTH WEEKLY montelukast 10 mg tablet See Rx Instructions .ROUTE .COMPLEX Qty: 90 3RF Dose Instruction: TAKE 1 TABLET BY MOUTH EVERY DAY Rx Instructions: TAKE 1 TABLET BY MOUTH EVERY DAY losartan 50 mg tablet 25 mg PO DAILY Qty: 90 0RF pravastatin 10 mg tablet See Rx Instructions .ROUTE .COMPLEX Qty: 90 1RF Dose Instruction: TAKE 1 TABLET BY MOUTH DAILY Rx Instructions: TAKE 1 TABLET BY MOUTH DAILY Follow-up/Referrals: Dnae Garcia DO [Physician] -
--- NOTE | 2024-11-18 18:56 | ECG_ITS ---
Test Date: 2024-11-18 19:07:27 Measurements Intervals [place] Rate: 69 P: 63 AL: 173 QRS: -23 QRSD: 142 T: 101 QT: 399 QTc: 429 Interpretive Statements SINUS RHYTHM WITH SINUS ARRHYTHMIA POSSIBLE LEFT ATRIAL ENLARGEMENT LEFT BUNDLE BRANCH BLOCK BASELINE ARTIFACT- I, II, AVR, AVL, V4-V5 ABNORMAL ECG Compared to ECG 07/23/2024 16:04:27 NO SIGNIFICANT CHANGE Electronically Signed On 11-18-2024 19:34:05 CDT by Chalo Poole D.O.
--- OUTSIDE RECORDS SUMMARY | 2024-11-18 19:11 | XMS_ITS | Clinical Summary ---
Author Organization [facility] Address [address] [place] [address] Care Team Providers Care Fixed Wing Pilot Name Role Phone Mikaela Gardner APRN-JUNIOR ACCOUNTING CLERK Primary Care Provid er Source Comments [facility],non-owned Affiliates and Associated Physician Practices is amultiple site organization consisting of ambulatory clinics and hospital sitesin [place], [place], [place] and [place]. This disclosure is being madepursuant to the Care Everywhere program and may not contain all information available regarding this patient. Last updated 18.[facility] Allergies No known active allergies Medications * [...] daily as needed Active Cholecalciferol 1.25 MG (48413 UT) Take 1 (one) tablet by mouth [...] Type Department Care Team Description 10/15/2024 Refill [facility] [address] [place] [address] Isabel Curtis MD Med Change Request 10/08/2024 11:00 AM CASH SURRENDER CALCULATOR Office Visit [facility] [address] [place] [address] Isabel Curtis MD Seizure (Primary Dx); Benign essential HTN; Subarachnoid hemorrhage; Personal history of cerebral parenchymal hemorrhage 10/08/2024 9:40 AM CASH SURRENDER CALCULATOR - 10/08/2024 11:59 PM CASH SURRENDER CALCULATOR Hospital Encounter [facility] - MRI [address] [place] [address] Isabel Curtis MD Discharge Disposition: Home or Self Care 09/10/2024 12:40 PM CASH SURRENDER CALCULATOR [facility] [address] [address] Isabel Curtis MD Subarachnoid hemorrhage (Primary Dx); [...] Recorded Patient Health Questionnaire-2 Score 0 07/25/[address] [facility] [place] of Occupat ional Health - Occupational Stress [...] any time in the past 12 m [facility], were you homeless or living in a residential (including now)? No 07/25/2024 Sex and Gender Information Value Date Recorded Sex Assigned at Not on file Gender Identity Not on file Sexual Orientation Not on file Last Filed Vital Signs Vital Sign Reading Time Taken Comments Blood Pressure 180/82 10/08/2024 11:04 AM CASH SURRENDER CALCULATOR Pulse 100 10/08/2024 11:04 AM CASH SURRENDER CALCULATOR Temperature 36.6 C (97.8 F) 07/25/2024 3:26 PM CASH SURRENDER CALCULATOR Respiratory Rate 18 10/08/2024 11:04 AM CASH SURRENDER CALCULATOR Oxygen Saturation 97% 10/08/2024 11:04 AM CASH SURRENDER CALCULATOR Inhaled Oxygen Concentration - - Weight 62.6 kg (138 lb) 10/08/2024 11:04 AM CASH SURRENDER CALCULATOR Height 170.2 cm (5' 7 ) 10/08/2024 11:04 AM CASH SURRENDER CALCULATOR Body Mass Index 21.61 10/08/2024 11:04 AM CASH SURRENDER CALCULATOR Plan of Treatment Upcoming Encounters Date Type Department Care Team (Late st Contact Info) Description 04/08/2025 2:00 PM CDT Office Visit [facility] [address] [place] [address] [place] [address] [place] [address] Health Maintenance Due Date Last [...] this topic Medical Devices Implanted Type Area Electronic Assembler Group Leader Device Identifier Shelf Expiration Date Model / Serial / Lot Cmpnt Glnd 27mm Std Miah Xtend Metaglene Implanted:Qty: 1 on 12/05/2016 by Raphael Martinez MD at [facility] Right: Shoulder [employer] 09/13/2021 1307-60-000 / / [id number] Biostop G Bioresorbable Cement Restrictor Implanted:Qty: 1 on 12/05/2016 by Raphael Martinez MD at [facility] Right: [employer]er [employer] 05/13/2018 5463-08-000 / / [id number] Delta Xtend Humeral Pe Cup Implanted:Qty: 1 on 12/05/2016 by Raphael Martinez MD at [facility] Right: Shoulder [employer] 09/13/2021 1307-42-206 / / [id number] Sys Shld Tot Arthroplst Rev Implanted:Qty: 1 on 12/05/2016 by Raphael Martinez MD at [facility] [employer] S4 DEPUY / / Delta Xtend Locking Metaglene Screw Implanted:Qty: 1 on 12/05/2016 by Raphael Martinez MD at [facility] Right: Shoulder [employer] 07/13/2021 1307-90-024 / / [id number] Delta Xtend Locking Metaglene Screw Implanted:Qty: 1 on 12/05/2016 by Raphael Martinez MD at [facility] Right: [employer] 06/13/2021 1307-90-024 / / [id number] Screw 4.5mm 30mm Shldr Glnd Lck Miah Implanted:Qty: 1 on 12/05/2016 by Raphael Martinez MD at [facility] Right: Shoulder [employer] 08/13/2021 1307-90-030 / / [id number] Delta Xtend Glenosphere Implanted:Qty: 1 on 12/05/2016 by Raphael Martinez MD at [facility] Right: Shoulder [employer] 09/13/2021 1307-60-142 / / [id number] Screw 4.5mm 30mm Shldr Glnd Lck Miah Implanted:Qty: 1 on 12/05/2016 by Raphael Martinez MD at [facility] Right: Shoulder [employer] 09/13/2021 1307-90-030 / / [id number] Cmnt Bone Sst Gnta 40gm Hvisc Implanted:Qty: 1 on 12/05/2016 by Raphael Martinez MD at [facility] Right: [employer] 05/13/2018 [id number] / / [id number] Cmnt Bone Sst Gnta 40gm Hvisc Implanted:Qty: 1 on 12/05/2016 by Raphael Martinez MD at [facility] Right: Shoulder [employer] 05/13/2018 [id number] / / [id number] Delta Xtend Monobloc Hum Epiphysis Implanted:Qty: 1 on 12/05/2016 by Raphael Martinez MD at [facility] Right: [employer] 07/13/2021 1307-08-100 / / [id number] Procedures Procedure Name Priority Date/Time Associated Diagnosis Comments MRI BRAIN WWO CONTRAST Routine 10/08/2024 10:35 AM CASH SURRENDER CALCULATOR Subarachnoid hemorrhage Seizure from Last 3 Months Results * MRI Brain Wwo Contrast (10/08/2024 10:35 AM CASH SURRENDER CALCULATOR) Anatomical Region Laterality Modality Head Magnetic Resonan ce 10/08/2024 10:3 7 AM CASH SURRENDER CALCULATOR Impressions 10/08/2024 11:02 AM CASH SURRENDER CALCULATOR IMPRESSION: Cerebral atrophic changes. No acute infarct. No focal enhancing parenchymal lesion seen. > Interpreting Provider: Julia Robbins MD on 10/08/2024 11:02 AM Narrative 10/08/2024 11:02 AM CASH SURRENDER CALCULATOR PROCEDURE: MRI BRAIN WWO CONTRAST, DATE/TIME OF EXAM: 10/08/2024 10:36 AM, LOCATION [facility] INDICATION: I60.9: Nontraumatic subarachnoid hemorrhage, unspecified (HCC) [...] CONTRAST, DATE/TIME OF EXAM: 10/08/2024 10:36AM, LOCATION [facility] INDICATION: I60.9: Nontraumatic subarachnoid hemorrhage, unspecified (HCC) [...] Documents on File Type Date Recorded Patient Scanning Clerk Expl anation Adv Directive/Living Will/POA 12/07/2016 10:12 PM * Full Code (Latest Code Status on File) Date Activated Date Inactivated Comments 07/23/2024 8:57 PM 07/25/2024 5:41 PM * Full Code Date Activated Date Inactivated Comments 12/06/2016 1:24 AM 12/06/2016 11:23 AM Care Teams Fixed Wing Pilot Relationship Specialty Start Date End Date Mikaela Gardner, TRAY DRIER-JUNIOR ACCOUNTING CLERK [address] [place] [address] PCP - General Nurse Practitioner Family 10/08/24
--- OUTSIDE RECORDS SUMMARY | 2024-11-18 19:11 | XMS_ITS | Clinical Summary ---
Author Organization [facility] Address [address] [place] [address] Phone Care Team Providers Care Senior Php Web Developer Name Role Phone Homer Solis MD Primary Care Provider [phone] Social History Tobacco Use Types Packs/Day Years Used Date Smoking Tobacco: Never Assessed Comments Unknown Sex and Gender Information Value Date Recorded Sex Assigned at Not on file Legal Sex Female 7:31 AM B[place]AP MAN Gender Identity Not on file Sexual Orientation [...] topic Insurance MEDICARE [place]ICAID [place] Care Teams Senior Php Web Developer Relationship Specialty Start Date End Date Homer Solis MD [address] [place] [id number] PCP - General General Surgery 07/30/24
[2024-11-18 19:18] LABS: Basophils Absolute Auto 0.04 K/mm3 (0.00-0.10); Basophils Percent Auto 0.5 % (0.0-1.0); Eosinophils Absolute Auto 0.03 K/mm3 (0.02-0.50); Eosinophils Percent Auto 0.4 % (1.0-6.0); Hematocrit 39.2 % (35.0-42.0); Hemoglobin 13.5 g/dL (11.7-13.8); Immature Granulocyte Absolute 0.02 K/mm3 (0.00-0.00); Immature Granulocyte Percent A 0.2 % (0.0-0.0); Lymphocytes Absolute Auto 1.96 K/mm3 (1.10-4.50); Mean Corpuscular HGB Conc 34.4 g/dL (32-36); Mean Corpuscular Hemoglobin 31.8 pg (27.0-31.0); Mean Corpuscular Volume 92.5 fL (78.0-102.0); Mean Platelet Volume 9.6 fl (9.2-11.8); Monocytes Absolute Auto 0.71 K/mm3 (0.10-0.90); Monocytes Percent Auto 8.7 % (2.0-11.0); Neutrophils Percent Auto 66.2 % (50.0-70.0); Platelet Count Result 179 K/mm3 (150-420); Red Blood Count 4.24 M/mm3 (4.20-5.40); Red Cell Distribution Width 11.7 % (11.6-14.4); White Blood Count 8.2 K/mm3 (4.8-10.8)
[2024-11-18 19:37] LABS: Partial Thromboplastin Time 25.1 Sec (23.9-30.70)
[2024-11-18 19:40] LABS: Alanine Aminotransferase 24 U/L (14-59); Albumin Level 3.7 g/dL (3.4-5.0); Alkaline Phosphatase 86 U/L (46-116); Anion Gap 5 mmol/L (4-12); Aspartate Amino Transferase 16 U/L (15-37); Bilirubin,Total 0.7 mg/dL (0.00-1.00); Blood Urea Nitrogen 14 mg/dL (7-18); Calcium 9.3 mg/dL (8.5-10.1); Carbon Dioxide 32 mmol/L (21-32); Chloride 94 mmol/L (98-108); Estimated CRCL calculation 53 ml/min; Estimated Glomerular Filt Rate > 60; Glucose 137 mg/dL (70-99); Osmolality Calculated 274 mOsm/kg (285-295); Potassium 4.1 mmol/L (3.5-5.1); Sodium 131 mmol/L (136-145); Total Protein 7.3 g/dL (6.4-8.2); Troponin I 16.2 ng/L (0.00-60.4)
--- NOTE | 2024-11-18 19:51 | PC.NURSE ---
pt taken to bathroom via wheelchair for urine specimen
--- NOTE | 2024-11-18 20:06 | PC.NURSE ---
pt unable to urinate. back in room resting comfortably
--- NOTE | 2024-11-18 22:03 | PC.NURSE ---
ERP aware of pt's blood pressure. No new orders at this time.
--- NOTE | 2024-11-18 22:38 | PC.NURSE ---
Called REY Mitchell, at [facility] and let her now that pt is on her way.
== END 2024-11-18 22:42 | disposition short-term general hospital (02) ==
PROVIDERS: Emergency Provider Emergency Medicine; PCP Nurse Practitioner Family
DX: R55 Syncope and collapse (principal); I10 Essential (primary) hypertension
CPT/HCPCS: 36415; 70450; 71045; 80053; 84484; 85025; 85610; 85730; 93005; 99285

== ENCOUNTER 2024-11-26 15:45 | Outpatient (CLI) | payer MEDICARE, SELFPAY ==
--- OUTSIDE RECORDS SUMMARY | 2024-11-26 16:41 | XMS_ITS | Clinical Summary ---
Author Organization [facility] Address [address] [place] [address] Phone Care Team Providers Care Golf Ball Marker Name Role Phone Homer Solis MD Primary Care Provider [phone] Social History Tobacco Use Types Packs/Day Years Used Date Smoking Tobacco: Never Assessed Comments Unknown Sex and Gender Information Value Date Recorded Sex Assigned at Not on file Legal Sex Female 7:31 AM DOUBLE END TENON OPERATOR Gender Identity Not on file Sexual Orientation [...] topic Insurance MEDICARE [place]ID [place] Care Teams Golf Ball Marker Relationship Specialty Start Date End Date Homer Solis MD [address] [place] [id number] PCP - General General Surgery 07/30/24
--- OUTSIDE RECORDS SUMMARY | 2024-11-26 16:41 | XMS_ITS | Clinical Summary ---
Author Organization [facility] [employer] Address [address] [place] [address] Care Team Providers Care Conservation Agent Name Role Phone Mikaela Gardner LIGHT OUT EXAMINER-CHAIR CAR DRIVER Primary Care Provid er Source Comments [facility] [employer],non-owned Affiliates and Associated Physician Practices is amultiple site organization consisting of ambulatory clinics and hospital sitesin [place], [place], [place] and [place]. This disclosure is being madepursuant to the Care Everywhere program and may not contain all information available regarding this patient. Last updated 18.[facility] [employer] Allergies No known active allergies Medications * Be aware that medications may not be up to date on this document. Alwaysverify current medications with the patient. pravastatin (PRAVACHOL) 10 MG tablet Take 1 (one) tablet by mouth Active montelukast (Singulair) 10 MG tablet Take 1 (one) tablet by mouth at bedtime Active diclofenac sodium (Voltaren) 1 % gel Apply 4 (four) g to affected area 4 times daily as needed Active Cholecalciferol 1.25 MG (03761 UT) Take 1 (one) tablet by mouth every 7 days Active potassium chloride ER (Klor-Con M) 10 MEQ tablet Take 1 (one) tablet by mouth once daily Active losartan (Cozaar) 25 MG tablet Take 2 (two) tablets by mouth once daily 30 tablet 4 5 Active Nutritional Supplements (Nutritional Supplement Plus) LIQD Take 1 container by mouth 2 times daily Your Registered Dietitian recommends that you continue an oral nutrition supplement 2x daily for 30 days after discharge. Low Calorie High Protein Supplement Examples: Ensure High Protein/Boost High Protein/Premie r Protein High Calorie High Protein Supplement Examples: Ensure Enlive/Ensure Plus High Protein/Boost Plus/Equate Plus Clear Liquid Supplement Examples: Ensure Clear/Premier Protein Clear/Resource Boost Breeze/Prosour ce High Protein Gelatin Vegan or Milk Free Supplement Examples: Ensure Plant/Orgain Active levETIRAcetam (Keppra) 750 MG tablet Take 1 (one) tablet by mouth 2 times daily 60 tablet 1 5 Active levETIRAcetam (Keppra) 500 MG tablet Take 1 (one) tablet by mouth 2 times daily 60 tablet 3 4 11/23/19 25 Discontin ued(List Clean-Up) Active Problems Problem Noted Date Diagnosed Date Syncope, unspecified syncope type 11/18/2024 Subarachnoid hemorrhage 07/23/2024 Benign essential HTN 12/05/2016 Hyperlipidemia 12/05/2016 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 Encounters Date Type Department Care Team Description 11/19/2024 Travel 11/18/2024 11:51 PM CDT - 11/22/2024 2:40 PM CDT Hospital Encounter [facility] 7S TELE/NEURO [address] [place] [address] Olga Lidia Valenzuela MD Thekekara, Joel, MD Hospitalist [place]charge Dis[place]: [place] [facility] [place] Ref[place] [facility] [id number] [place] [phone] Isabel Curtis MD Med Change Request 10/08/2024 11:00 AM ENTERPRISE SYSTEMS ARCHITECT Office Visit [facility] [address] [phone] Isabel Curtis MD Seizure (Primary Dx); Benign essential HTN; Subarachnoid hemorrhage; Personal history of cerebral parenchymal hemorrhage 10/08/2024 9:40 AM ENTERPRISE SYSTEMS ARCHITECT - 10/08/2024 11:59 PM ENTERPRISE SYSTEMS ARCHITECT Hospital Encounter [facility] Health Imaging Services - MRI [address] [place] [address] Isabel Curtis MD Discharge Disposition: Home or Self Care 09/10/2024 12:40 PM ENTERPRISE SYSTEMS ARCHITECT Office Visit [facility] [address] [facility] [address] [place] [phone] Isabel Curtis MD Subarachnoid hemorrhage (Primary Dx); Seizure 09/10/2024 Travel from Last 3 Months Family History Medical History Relation Name Comments Cancer Father bone Heart Disease Mother Stroke Sister 1 Heart Disease Sister 2 Relation Name Status Comments Father Mother Sister 1 Sister 2 Social History Tobacco Use Types Packs/Day Years Used Date Smoking Tobacco: Never Smokeless Tobacco: Never Tobacco Cessation:Counseling Given: Not Answered Alcohol Use Standard Drinks/Week Comments No 0 (1 standard drink = 0.6 oz pur e alcohol) AUDIT-C Answer Date Recorded Q1: How often do you have a drink containing alcohol? Never 11/19/2024 Q2: How many drinks containi ng alcohol do you have on a typical day when you are drinking? Patient does not drink Q3: How often do you have si x or more drinks on one occasion? Never 11/19/2024 Overall Financial Resource Strain (CARDIA) Answe r Date Recorded How hard is it for you to pa y for the very basics like food, housing, medical care, and heating? Not very hard 11/19/2024 PHQ-2 Answer Date Recorded Patient Health Questionnaire-2 Score 0 07/25/2024 [facility] [place] of Occupat ional Health - Occupational Stress Questionnaire Answer Date Recorded Do you feel stress - tense, restless, nervous, or anxious, or unable to sleep at night because your mind is troubled all the time - these days? Not at all 11/19/2024 Hunger Vital Sign Answer Date Recorded Within the past 12 months, y ou worried that your food would run out before you got the money to buy more. Never true 11/20/19 25 Within the past 12 months, t he food you bought just didn't last and you didn't have money to get more. Never true 11/19/2024 PRAPARE - Transportation Answer Date Re corded In the past 12 months, has l ack of transportation kept you from medical appointments or from getting medications? No 03/2025 In the past 12 months, has l ack of transportation kept you from meetings, work, or from getting things needed for daily living? No 11/19/2024 Housing Stability Vital Sign Answer Dennis e Recorded In the last 12 months, was t here a time when you were not able to pay the mortgage or rent on time? No 11/19/2024 In the past 12 months, how m any times have you moved where you were living? 0 11/19/2024 At any time in the past 12 m [facility], were you homeless or living in a residential (including now)? No 11/19/2024 Comments No Sex and Gender Information Value Date Recorded Sex Assigned at Not on file Legal Sex Female 11:09 AM CDT Gender Identity Not on file Sexual Orientation Not on file Last Filed Vital Signs Vital Sign Reading Time Taken Comments Blood Pressure 119/55 11/22/2024 7:49 AM CDT Pulse 70 11/22/2024 7:49 AM CDT Temperature 36.9 C (98.4 F) 11/22/2024 7:49 AM CDT Respiratory Rate 17 11/22/2024 7:49 AM CDT Oxygen Saturation 99% 11/22/2024 7:49 AM CDT Inhaled Oxygen Concentration - - Weight 60.1 kg (132 lb 7.9 oz) 11/19/2024 12:00 AM CDT Height 170.2 cm (5' 7 ) 11/19/2024 12:00 AM CDT Body Mass Index 20.75 11/19/2024 12:00 AM CDT Plan of Treatment Upcoming Encounters Date Type Department Care Team (Late st Contact Info) Description 04/08/2025 2:00 PM CDT Office Visit [address] [phone] [place] [address] [facility] [address] [phone] Health Maintenance Due Date Last Done Comments BONE DENSITY TESTING 1945 MEDICARE AWV 12 MONTHS 1945 HEPATITIS C SCREENING 09/12/1964 DTAP/TDAP/TD VACCINES (1 - Tdap) 1965 PNEUMOCOCCAL VACCINE 50+ (1 of 1 - PCV) 1996 ZOSTER VACCINE (1 of 2) 1996 Respiratory Syncytial Virus (RSV) Vaccine Pt: or over 60 yrs (1 - 1-dose 75+ series) 2021 COVID-19 VACCINE ( season) 2024 05/31/2023, 10/26/2022, 01/04/2022, Additional history exists DEPRESSION SCREENING 08/14/2024 INFLUENZA VACCINE Completed 06/18/2024, , 06/08/2022, Additional history exists HEPATITIS B VACCINE Aged Out No longe r eligible based on patient's age to complete this topic HIB VACCINE Aged Out No longer eligi ble based on patient's age to complete this topic HPV VACCINE Aged Out No longer eligi ble based on patient's age to complete this topic MENINGOCOCCAL (Group B) VACCINE SHARED DECISION-MAKING Aged Out No longer eligible based on patient's age to complete this topic MENINGOCOCCAL GROUPS A/C/Y/W VACCINE Aged Out No longer eligible based on patient's age to complete this topic Medical Devices Implanted Type Area Arts Administrator Device Identifier Shelf Expiration Date Model / Serial / Lot Cmpnt Glnd 27mm Std Miah Xtend Metaglene Implanted:Qty: 1 on 12/05/2016 by Raphael Martinez MD at [facility] Right: Shoulder [employer] 09/13/2021 1307-60-000 / / [id number] Biostop G Bioresorbable Cement Restrictor Implanted:Qty: 1 on 12/05/2016 by Raphael Martinez MD at [facility] Right: Shoulder [employer] 05/13/2018 5463-08-000 / / [id number] Delta Xtend Humeral Pe Cup Implanted:Qty: 1 on 12/05/2016 by Raphael Martinez MD at [facility] Right: Shoulder [employer] 09/13/2021 1307-42-206 / / [id number] Sys Shld Tot Arthroplst Rev Implanted:Qty: 1 on 12/05/2016 by Raphael Martinez MD at [facility] [employer] S4 DEPUY / / Delta Xtend Locking Metaglene Screw Implanted:Qty: 1 on 12/05/2016 by Raphael Martinez MD at [facility] Right: Shoulder [employer] 07/13/2021 1307-90-024 / / [id number] Delta Xtend Locking Metaglene Screw Implanted:Qty: 1 on 12/05/2016 by Raphael Martinez MD at [facility] Right: Shoulder [employer] 06/13/2021 1307-90-024 / / [id number] Screw 4.5mm 30mm Shldr Glnd Lck Miah Implanted:Qty: 1 on 12/05/2016 by Raphael Martinez MD at [facility] Right: Shoulder [employer] 08/13/2021 1307-90-030 / / [id number] Delta Xtend Glenosphere Implanted:Qty: 1 on 12/05/2016 by Raphael Martinez MD at [facility] Right: Shoulder [employer] 09/13/2021 [id number] / / [id number] Screw 4.5mm 30mm Shldr Glnd Lck Miah Implanted:Qty: 1 on 12/05/2016 by Raphael Martinez MD at [facility] Right: Shoulder [employer] 09/13/2021 1307-90-030 / / [id number] Cmnt Bone Sst Gnta 40gm Hvisc Implanted:Qty: 1 on 12/05/2016 by Raphael Martinez MD at [facility] Right: Shoulder [employer] 05/13/2018 [id number] / / [id number] Cmnt Bone Sst Gnta 40gm Hvisc Implanted:Qty: 1 on 12/05/2016 by Raphael Martinez MD at [facility] Right: Shoulder [employer] 05/13/2018 [id number] / / [id number] Delta Xtend Monobloc Hum Epiphysis Implanted:Qty: 1 on 12/05/2016 by Raphael Martinez MD at [facility] Right: Shoulder [employer] 07/13/2021 1307-08-100 / / [id number] Procedures Procedure Name Priority Date/Time Associated Diagnosis Comments CARDIAC RHYTHM STRIP ORDER 11/25/2024 5:01 PM CDT CBC W AUTO DIFFERENTIAL AM Draw 11/22/2024 5:44 AM CDT RENAL FUNCTION PANEL AM Draw 11/22/2024 5:44 AM CDT OSMOLALITY URINE TATO 11/21/2024 1:41 PM CDT SODIUM URINE RANDOM Routine 11/21/2024 1 :41 PM CDT CBC W AUTO DIFFERENTIAL AM Draw 11/21/2024 5:45 AM CDT RENAL FUNCTION PANEL AM Draw 11/21/2024 5:45 AM CDT ECHO COMPLETE W CONTRAST Routine 11/20/2024 1:29 PM CDT Syncope, unspecified syncope type CBC W AUTO DIFFERENTIAL AM Draw 11/20/2024 5:24 AM CDT RENAL FUNCTION PANEL AM Draw 11/20/2024 5:[address] HEAD WO CONTRAST STAT 11/19/2024 1 1:37 PM CDT Subarachnoid hemorrhage (HCC) EEG Routine 11/19/2024 3:58 PM CDT LEVETIRACETAM LEVEL AM Draw 11/19/2024 5 :05 AM CDT MAGNESIUM BLOOD AM Draw 11/19/2024 5:05 AM CDT COMPREHENSIVE METABOLIC PANEL AM Draw 11/19/2024 5:05 AM CDT CBC W AUTO DIFFERENTIAL AM Draw 11/19/2024 5:05 AM CDT MRI BRAIN WWO CONTRAST Routine 10:35 AM ENTERPRISE SYSTEMS ARCHITECT Subarachnoid hemorrhage Seizure from Last 3 Months Results * CARDIAC RHYTHM STRIP ORDER (11/25/2024 5:01 PM CDT) Narrative 11/25/2024 5:01 PM CDT Ordered by an unspecified provider. us Scanned Document CARDIAC SERVICES ORDERABLES Fin al Result * (ABNORMAL) CBC W AUTO DIFFERENTIAL (11/22/2024 5:44 AM CDT) Only the most recent of4 resultswithin the time period is included. WBC 6.7 4.0 - 10.7 x10E9/L 11/22/2024 6:12 AM CDT [facility] RBC Count 3.85(L) 3.90 - 5.20 x10E12/L 11/22/2024 6:12 AM CDT [facility] Hemoglobin 12.4 11.9 - 15.8 g/dL 11/22/2024 6:12 AM CDT [facility] Hematocrit 35.0 34.8 - 46.1 % 11/22/2024 6:12 AM CDT [facility] MCV 90.9 80.0 - 98.0 fL 11/22/2024 6:12 AM CDT [facility] MCH 32.2 26.7 - 33.6 pg 11/22/2024 6:12 AM CDT [facility] MCHC 35.4 31.7 - 36.3 g/dL 11/22/2024 6:12 AM CDT [facility] RDW-CV 11.7 11.3 - 14.8 % 11/22/2024 6:12 AM CDT [facility] Platelet Count 144(L) 150 - 420 x10E9/L 11/22/2024 6:12 AM CDT [facility] MPV 9.7 7.8 - 11.4 fL 11/22/2024 6:12 AM CDT [facility] Neutrophil % 47.6 41.0 - 74.0 % 11/22/2024 6:12 AM CDT [facility] Lymphocyte % 39.3 17.0 - 47.0 % 11/22/2024 6:12 AM CDT [facility] Monocyte % 10.5 3.0 - 11.0 % 11/22/2024 6:12 AM CDT [facility] Eosinophil % 1.7 0.0 - 7.0 % 11/22/2024 6:12 AM CDT [facility] Basophil % 0.6 0.0 - 1.6 % 11/22/2024 6:12 AM CDT [facility] Immature Granulocytes % 0.3 0.0 - 1.0 % 11/22/2024 6:12 AM CDT [facility] Neutrophil Absolute 3.17 1.60 - 7.50 x10E9/L 11/22/2024 6:12 AM CDT [facility] Lymphocyte Absolute 2.62 1.00 - 4.40 x10E9/L 11/22/2024 6:12 AM CDT [facility] Monocyte Absolute 0.70 0.15 - 1.00 x10E9/L 11/22/2024 6:12 AM CDT [facility] Eosinophil Absolute 0.11 0.00 - 0.60 x10E9/L 11/22/2024 6:12 AM CDT [facility] Basophil Absolute 0.04 0.00 - 0.13 x10E9/L 11/22/2024 6:12 AM CDT [facility] Blood BLOOD SPECIMEN / Unknown Venipuncture / Unknown 11/22/2024 5:44 AM CDT 11/22/2024 6:07 AM CDT us Gus Womack MD LAB - HEMATOLOGY ORDERABLES Fi nal Result [facility] [address] [place] [address] * (ABNORMAL) RENAL FUNCTION PANEL (11/22/2024 5:44 AM CDT) Only the most recent of3 resultswithin the time period is included. [facility] Glucose 97 70 - 99 mg/dL 11/22/2024 6:29 AM CDT [facility] Sodium 129(L) 136 - 145 mmol/L 11/22/2024 6:29 AM CDT [facility] Potassium 4.5 3.5 - 5.1 mmol/L 11/22/2024 6:29 AM CDT [facility] Chloride 97(L) 98 - 107 mmol/L 11/22/2024 6:29 AM CDT [facility] CO2 27 22 - 29 mmol/L 11/22/2024 6:29 AM CDT [facility] Calcium 8.4 8.4 - 10.4 mg/dL 11/22/2024 6:29 AM CDT [facility] Anion Gap 5(L) 6 - 16 mmol/L 11/22/2024 6:29 AM CDT [facility] BUN 14 7 - 26 mg/dL 11/22/2024 6:29 AM CDT [facility] Creatinine 0.61 0.57 - 1.11 mg/dL 11/22/2024 6:29 AM CDT [facility] Albumin 3.0(L) 3.4 - 5.0 gm/dL 11/22/2024 6:29 AM CDT [facility] Phosphorus 3.2 2.5 - 4.5 mg/dL 11/22/2024 6:29 AM T [facility] eGFR by CKD-EPI >90 >=90 mL/min/1.7 3 m2 11/22/2024 6:29 AM CDT [facility] Blood BLOOD SPECIMEN / Unknown Venipuncture / Unknown 11/22/2024 5:44 AM CDT 11/22/2024 6:07 AM CDT us Gus Womack MD LAB - CHEMISTRY ORDERABLES Fin al Result [facility] [address] [place] [address] * SODIUM URINE RANDOM (11/21/2024 1:41 PM CDT) Sodium Urine 59 mmol/L 11/21/2024 2:04 PM CDT [facility] Urine URINE SPECIMEN OBTAINED BY CLEAN CATCH PROCEDURE / Unknown Collection / Unknown 11/21/2024 1:41 PM CDT 11/21/2024 1:43 PM CDT us Yi Hills MD LAB - URINE CHEMISTRY ORDERAB LES Final Result Performing Organization Address City/[facility]/ZIP Co de Phone Number [facility] [address] [place], [place] [id number] * OSMOLALITY URINE (11/21/2024 1:41 PM CDT) Pathologist [facility] Osmolality Urine 300 50 - 1,200 mOsm/kg 11/21/2024 2:02 PM CDT [facility] Urine URINE SPECIMEN OBTAINED BY CLEAN CATCH PROCEDURE / Unknown Collection / Unknown 11/21/2024 1:41 PM CDT 11/21/2024 1:43 PM CDT us Yi Hills MD LAB - URINE CHEMISTRY ORDERAB LES Final Result Performing Organization Address [facility] Co de Phone Number [facility] [address] [place] [address] * ECHO COMPLETE W CONTRAST (11/20/2024 1:29 PM CDT) AV area index 1.214 cm /m [facility] CV FUJI PACS Dimensionless Index 0.67 unitless [facility] CV FUJI PACS Myocardial strain charge 2 unitless [facility] CV FUJI PACS LVOT diam 1.968 cm [facility] CV FUJ I PACS LV biplane EF 60.08 % [facility] CV FUJI PACS LV A2C EF 52.999 % [facility] CV FUJ I PACS LV A4C EF 64.134 % [facility] CV FUJ I PACS LV EDV A2C 93.479 ml SSM CV FU JI PACS LV EDV A4C 93.343 ml SSM CV FU JI PACS LV ESV A2C 43.936 ml SSM CV FU JI PACS LV ESV A4C 33.478 ml SSM CV FU JI PACS LVOT pk grad 4.411 mmHg SSM CV FUJI PACS LVOT pk blake 105.013 cm/s SSM CV F UJI PACS LVOT VTI 23.971 cm SSM CV FUJ I PACS AV area pk blake 1.765 cm SSM CV FUJI PACS AV area cont VTI 2.039 cm SSM CV FUJI PACS AV pk grad 13.117 mmHg SSM CV FU JI PACS AV mn grad 7.631 mmHg SSM CV FU JI PACS AV pk blake 181.084 cm/s SSM CV FUJ I PACS AV VTI 35.777 cm SSM CV FUJ I PACS MV A pk blake 99.299 cm/s SSM CV F UJI PACS MV E pk blake 77.064 cm/s SSM CV F UJI PACS MV E' lateral blake 8.423 cm/s SS M CV FUJI PACS PV pk blake 120.135 cm/s SSM CV FUJ I PACS TAPSE 2.205 cm SSM CV FUJ I PACS Anatomical Region Laterality Modality Ultrasound 11/20/2024 12:4 7 PM CDT Narrative 11/20/2024 8:11 PM CDT Summary * The left ventricle is normal in size with normal systolic function and an estimated ejection fraction of 55-60% by visual estimate. Left ventricular wall motion is grossly normal, however endocardial definition is limited. * The left ventricular diastolic function is normal. * Right ventricle is normal in size with normal systolic function. * Unable to assess pulmonary pressures due to a lack of tricuspid and pulmonic regurgitation. Patient Info Name: Liss Prince Age: 79 years : 1945 Gender: Female Ht: 67 in Wt: 132 lb BSA: 1.68 m2 HR: 62 bpm Exam Date: 11/20/2024 12:47 PM Patient Status: I/P Study Site: [facility] Primary Location: [facility] EStudy Info Exam Type: ECHO COMPLETE W CONTRAST Indications R55 - Syncope, unspecified syncope type Procedure(s) * A complete 2D, color Doppler, spectral Doppler, and M-Mode transthoracic echocardiogram with Definity was performed. Staff Referring Physician: Gus Womack Ordering Provider: Gus Womack Attending Physician: Gus Womack Medical Records Clerk: Raquel Goins Left Ventricle The left ventricle is normal in size. Left ventricular systolic function is normal with an estimated ejection fraction of 55-60% by visual estimate. The left ventricular mass is normal. Left ventricular segmental wall motion is grossly normal, however endocardial definition is limited. The left ventricular diastolic function is normal. Right Ventricle The right ventricle is normal in size. Right ventricular systolic function is normal. Left Atrium The left atrium is normal in size. Right Atrium The right atrium is normal in size. Atrial Septum Intact interatrial septum visualized by 2D and color Doppler imaging. Aortic Valve The aortic valve is not well visualized and possibly trileaflet. There is no aortic valve stenosis. There is no aortic valve regurgitation. Pulmonic Valve The pulmonic valve is normal. There is no pulmonic valve stenosis. There is no pulmonic regurgitation. Mitral Valve The mitral valve is normal. There is no mitral valve stenosis. There is trace mitral valve regurgitation. Tricuspid Valve The tricuspid valve is normal. There is no tricuspid valve regurgitation. Unable to assess pulmonary pressures due to a lack of tricuspid and pulmonic regurgitation. Inferior Vena Cava The inferior vena cava is normal in size (< 2.1 cm). There is < 50% collapse of the IVC upon inspiration with an estimated right atrial pressure of 3 mmHg. Pericardium/Pleural There is no pericardial effusion. Aorta The aortic root at the sinus of Valsalva is normal in size. The ascending aorta is normal in size. Measurements Left Ventricular Outflow Tract Name Value Normal LVOT 2D LVOT Diameter 2.0 cm LVOT Area 3.0 cm2 LVOT Doppler LVOT Peak Velocity 1.1 m/s LVOT Peak Gradient 4 mmHg LVOT Mean Velocity 76.81 cm/s LVOT Mean Gradient 3 mmHg LVOT VTI 24.0 cm LVOT VTI/AV VTI Ratio 0.7 LVOT Stroke Volume 73 ml LVOT Stroke Volume Index 43 ml/m2 35-58 LVOT CO 4.5 l/min LVOT CI 2.7 l/min/m2 Pulmonic Valve Name Value Normal PV Doppler PV Peak Velocity 1.2 m/s PV Peak Gradient 6 mmHg Mitral Valve Name Value Normal MV Diastolic Function MV E Peak Velocity 0.8 m/sec MV A Peak Velocity 1.0 m/sec MV E/A 0.8 MV Decel Time (PW) 301 ms MV Annular TDI MV Septal e' Velocity 6 cm/s >=8 MV E/e' (Septal) 13 <=8 MV Lateral e' Velocity 8 cm/s >=10 MV E/e' (Lateral) 9 <=8 MV e' Average 7 cm/s MV E/e' (Average) 11 Tricuspid Valve Name Value Normal Estimated PAP/RSVP RA Pressure 3 mmHg <=5 Aorta Name Value Normal Ascending Aorta Ao Root Diameter (MM) 2.4 cm Ao Root Diam Index (MM) 1.4 cm/m2 Aortic Valve Name Value Normal AV 2D/MM AV Cusp Sep (MM) 1.6 cm AV Doppler AV Peak Velocity 1.81 m/s AV Peak Gradient 13 mmHg AV Mean Gradient 8 mmHg AV VTI 36 cm AV Area (Cont Eq VTI) 2.04 cm2 >=2.00 AV Area (Cont Eq Blake) 1.76 cm2 AV DI (VTI) 0.67 AV DI (Blake) 0.58 AV Regurgitation 2D LVOT Area 3.04 cm2 Ventricles Name Value Normal LV Fractional Shortening/Ejection Fraction 2D/MM LV Diastolic Volume (4C MOD) 93 ml LV EF (4C MOD) 64 % LV Diastolic Volume (2C MOD) 93 ml LV EF (2C MOD) 53 % LV Diastolic Volume (BP MOD) 97 ml 46-106 LV Diastolic Volume Index (BP MOD) 58 ml/m2 29-61 LV Systolic Volume (BP MOD) 39 ml 14-42 LV Systolic Volume Index (BP MOD) 23 ml/m2 8-24 LV EF (BP MOD) 60 % 54-74 LV Diastolic Length (4C) 8.1 cm LV Systolic Length (4C) 6.3 cm LV Stroke Volume (4C MOD) 60 ml RV Dimensions 2D/MM TAPSE 2.2 cm >=1.7 Atria Name Value Normal LA Dimensions LA Dimension (MM) 2.5 cm 2.7-3.8 Report Signatures Amended by Miguel Hancock on 11/21/2024 01:59 PM Finalized by Miguel Hancock on 11/20/2024 08:11 PM Procedure Note Miguel Hancock MD - 11/21/2024 Summary * The left ventricle is normal in size with normal systolic function andan estimated ejection fraction of 55-60% by visual estimate. Leftventricular wall motion is grossly normal, however endocardial definition islimited. * The left ventricular diastolic function is normal. * Right ventricle is normal in size with normal systolic function. * Unable to assess pulmonary pressures due to a lack of tricuspid and pulmonic regurgitation. Patient Info Name: Liss Prince Age: 79 years : 1945 Gender: Female Ht: 67 in Wt: 132 lb BSA: 1.68 m2 HR: 62 bpm Exam Date: 11/20/2024 12:47 PM Patient Status: I/P Study Site: [facility] Primary Location: [facility] EStudy Info Exam Type: ECHO COMPLETE W CONTRAST Indications R55 - Syncope, unspecified syncope type Procedure(s) * A complete 2D, color Doppler, spectral Doppler, and M-Modetransthoracic echocardiogram with Definity was performed. Staff Referring Physician: Gus Womack Ordering Provider: Gus Womack Attending Physician: Gus Womack Medical Records Clerk: Raquel Goins Left Ventricle The left ventricle is normal in size. Left ventricular systolic functionis normal with an estimated ejection fraction of 55-60% by visual estimate.The left ventricular mass is normal. Left ventricular segmental wall motionis grossly normal, however endocardial definition is limited. The left ventricular diastolic function is normal. Right Ventricle The right ventricle is normal in size. Right ventricular systolicfunction is normal. Left Atrium The left atrium is normal in size. Right Atrium The right atrium is normal in size. Atrial Septum Intact interatrial septum visualized by 2D and color Doppler imaging. Aortic Valve The aortic valve is not well visualized and possibly trileaflet. Thereis no aortic valve stenosis. There is no aortic valve regurgitation. Pulmonic Valve The pulmonic valve is normal. There is no pulmonic valve stenosis. Thereis no pulmonic regurgitation. Mitral Valve The mitral valve is normal. There is no mitral valve stenosis. Thereis trace mitral valve regurgitation. Tricuspid Valve The tricuspid valve is normal. There is no tricuspid valveregurgitation. Unable to assess pulmonary pressures due to a lack of tricuspid andpulmonic regurgitation. Inferior Vena Cava The inferior vena cava is normal in size (< 2.1 cm). There is < 50%collapse of the IVC upon inspiration with an estimated right atrial pressure of 3mmHg. Pericardium/Pleural There is no pericardial effusion. Aorta The aortic root at the sinus of Valsalva is normal in size. Theascending aorta is normal in size. Measurements Left Ventricular Outflow Tract Name Value Normal LVOT 2D LVOT Diameter 2.0 cm LVOT Area 3.0 cm2 LVOT Doppler LVOT Peak Velocity 1.1 m/s LVOT Peak Gradient 4 mmHg LVOT Mean Velocity 76.81 cm/s LVOT Mean Gradient 3 mmHg LVOT VTI 24.0 cm LVOT VTI/AV VTI Ratio 0.7 LVOT Stroke Volume 73 ml LVOT Stroke Volume Index 43 ml/m2 35-58 LVOT CO 4.5 l/min LVOT CI 2.7 l/min/m2 Pulmonic Valve Name Value Normal PV Doppler PV Peak Velocity 1.2 m/s PV Peak Gradient 6 mmHg Mitral Valve Name Value Normal MV Diastolic Function MV E Peak Velocity 0.8 m/sec MV A Peak Velocity 1.0 m/sec MV E/A 0.8 MV Decel Time (PW) 301 ms MV Annular TDI MV Septal e' Velocity 6 cm/s >=8 MV E/e' (Septal) 13 <=8 MV Lateral e' Velocity 8 cm/s >=10 MV E/e' (Lateral) 9 <=8 MV e' Average 7 cm/s MV E/e' (Average) 11 Tricuspid Valve Name Value Normal Estimated PAP/RSVP RA Pressure 3 mmHg <=5 Aorta Name Value Normal Ascending Aorta Ao Root Diameter (MM) 2.4 cm Ao Root Diam Index (MM) 1.4 cm/m2 Aortic Valve Name Value Normal AV 2D/MM AV Cusp Sep (MM) 1.6 cm AV Doppler AV Peak Velocity 1.81 m/s AV Peak Gradient 13 mmHg AV Mean Gradient 8 mmHg AV VTI 36 cm AV Area (Cont Eq VTI) 2.04 cm2 >=2.00 AV Area (Cont Eq Blake) 1.76 cm2 AV DI (VTI) 0.67 AV DI (Blake) 0.58 AV Regurgitation 2D LVOT Area 3.04 cm2 Ventricles Name Value Normal LV Fractional Shortening/Ejection Fraction 2D/MM LV Diastolic Volume (4C MOD) 93 ml LV EF (4C MOD) 64 % LV Diastolic Volume (2C MOD) 93 ml LV EF (2C MOD) 53 % LV Diastolic Volume (BP MOD) 97 ml 46-106 LV Diastolic Volume Index (BP MOD) 58 ml/m2 29-61 LV Systolic Volume (BP MOD) 39 ml 14-42 LV Systolic Volume Index (BP MOD) 23 ml/m2 8-24 LV EF (BP MOD) 60 % 54-74 LV Diastolic Length (4C) 8.1 cm LV Systolic Length (4C) 6.3 cm LV Stroke Volume (4C MOD) 60 ml RV Dimensions 2D/MM TAPSE 2.2 cm >=1.7 Atria Name Value Normal LA Dimensions LA Dimension (MM) 2.5 cm 2.7-3.8 Report Signatures Amended by Miguel Hancock on 11/21/2024 01:59 PM Finalized by Miguel Hancock on 11/20/2024 08:11 PM us Gus Womack MD ECHO C[facility] Edited Result - Final * CT HEAD NON CONTRAST (11/19/2024 11:37 PM CDT) Anatomical Region Laterality Modality Head Computed Tomogra phy 11/20/2024 7:56 AM CDT Impressions 11/20/2024 7:58 AM CDT IMPRESSION: 1. NO ACUTE INTRACRANIAL FINDINGS. 2. AGE-APPROPRIATE SMALL VESSEL WHITE MATTER CHANGES PARENCHYMAL LOSS/ATROPHY. 3. DO NOT SEE ANY SUBARACHNOID HEMORRHAGE. 4. VIZ AI WAS USED FOR INTRACRANIAL HEMORRHAGE DETECTION. 5. A PRELIMINARY REPORT WAS GIVEN BY USMAN SHANNON AT THE TIME OF THE EXAMINATION'S COMPLETION. > Interpreting Provider: Bhupendra Cespedes MD on 11/20/2024 7:58 AM Narrative 11/20/2024 7:58 AM CDT PROCEDURE: CT HEAD WO CONTRAST, DATE/TIME OF EXAM: 11/19/2024 11:37 PM, LOCATION [facility] INDICATION: I60.9: Nontraumatic subarachnoid hemorrhage, unspecified (HCC) ADDITIONAL CLINICAL INFORMATION: Ordering Provider Reason For Exam: HX OF [facility] Technologist Note: Additional: COMPARISON: 07/24/2024 CT BRAIN INDICATION: 79 old Female with subarachnoid hemorrhage, seizure. Altered mental status, TECHNIQUE: Unenhanced axial images were made from the skull base to the cranial vertex. One or more of the following CT dose reduction techniques were utilized: - Automated exposure control (AEC) - Adjustment of mA and/or kV, according to the patient's size - use of iterative reconstruction technique - CT scan done according to ALARA or ALARA/IMAGE GENTLY FINDINGS: Comparison is made to prior examination 08/02/2024. Mild prominence of the sulci and ventricles, consistent with her age. Subtle low-attenuation changes are seen. White matter tracts. There are atherosclerotic calcifications distal internal carotid and left vertebral arteries.. There is normal velázquez/white matter differentiation. I do not see any evidence of hemorrhage, edema, mass or mass-effect. There are no extra-axial fluid collections. The paranasal sinuses included in the study are well aerated. No specific bony abnormalities are seen. Procedure Note Bhupendra Cespedes MD - 11/20/2024 PROCEDURE: CT HEAD WO CONTRAST, DATE/TIME OF EXAM: 11/19/2024 11:37 PM, LOCATION [facility] INDICATION: I60.9: Nontraumatic subarachnoid hemorrhage, unspecified(HCC) ADDITIONAL CLINICAL INFORMATION: Ordering Provider Reason For Exam: HX OF SAH Technologist Note: Additional: COMPARISON: 07/24/2024 CT BRAIN INDICATION: 79 old Female with subarachnoid hemorrhage, seizure. Altered mental status, TECHNIQUE: Unenhanced axial images were made from the skull base to the cranial vertex. One or more of the following CT dose reduction techniques were utilized: - Automated exposure control (AEC) - Adjustment of mA and/or kV, according to the patient's size - use of iterative reconstruction technique - CT scan done according to ALARA or ALARA/IMAGE GENTLY FINDINGS: Comparison is made to prior examination 08/02/2024. Mild prominence of the sulci and ventricles, consistent with her age. Subtle low-attenuation changes are seen. White matter tracts. There are atherosclerotic calcifications distal internal carotid and left vertebral arteries.. There is normalgray/white matter differentiation. I do not see any evidence of hemorrhage, edema, mass or mass-effect. There are no extra-axial fluid collections. The paranasal sinusesincluded in the study are well aerated. No specific bony abnormalities are seen. IMPRESSION: 1. NO ACUTE INTRACRANIAL FINDINGS. 2. AGE-APPROPRIATE SMALL VESSEL WHITE MATTER CHANGES PARENCHYMAL LOSS/ATROPHY. 3. DO NOT SEE ANY SUBARACHNOID HEMORRHAGE. 4. VIZ AI WAS USED FOR INTRACRANIAL HEMORRHAGE DETECTION. 5. A PRELIMINARY REPORT WAS GIVEN BY USMAN SHANNON AT THE TIME OF THE EXAMINATION'S COMPLETION. > Interpreting Provider: Bhupendra Cespedes MD on 11/20/2024 7:58 AM us uGs Womack MD CT ORDERABLES Final Result * EEG (11/19/2024 3:58 PM CDT) Narrative [facility] - 11/19/2024 3:58 PM CDT Kieran Ferreira MD 11/19/2024 3:59 PM 11/19/2024 Electroencephalogram A routine EEG was carried out utilizing the digital multichannel recorder in a 79 year old female. The chief complaint is possible seizure Unipolar and bipolar montages in the International 10/ 20 system are utilized. Current Facility-Administered Medications Medication 0.9% NaCl injection 3 mL And 0.9% NaCl injection 1-10 mL acetaminophen (Tylenol) tablet 650 mg heparin injection 5,000 Units levETIRAcetam (Keppra) tablet 500 mg losartan (Cozaar) tablet 50 mg montelukast (Singulair) tablet 10 mg potassium chloride ER (Klor-Con M) tablet 10 mEq pravastatin (Pravachol) tablet 10 mg The patient is awake and drowsy in this record. The voltages are low to moderate and high. During the alert portion of this record alpha rhythms are present at 8 cycles per second and are fusiform. Slower rhythms indicate drowsiness. Sleep spindles are absent. The manager cardiac indicates a pulse at 90 beats per minute Over breathing and post over breathing are not performed. Photic stimulation was not performed No focal, paroxysmal or lateralizing abnormalities are present in this record. Impression: Normal EEG for age Kieran Ferreira MD us María Lerner Cheliryder LIGHT OUT EXAMINER-CHAIR CAR DRIVER NEUROLOGY ORDERABL ES Final Result [facility] * (ABNORMAL) LEVETIRACETAM LEVEL (11/19/2024 5:05 AM CDT) Levetiracetam 7.46(L) 10 - 40 ug/mL 11/19/2024 10:13 AM CDT [facility] Blood BLOOD SPECIMEN / Unknown Venipuncture / Unknown 11/19/2024 5:05 AM CDT 11/19/2024 5:22 AM CDT María Sinha LIGHT OUT EXAMINER-CHAIR CAR DRIVER LAB - THER APEUTIC DRUG MONITORING ORDERABLES Final Result [facility] [id number] [id number] * (ABNORMAL) COMPREHENSIVE METABOLIC PANEL (11/19/2024 5:05 AM CDT) Glucose 115(H) 70 - 99 mg/dL 11/19/2024 5:42 AM CDT [facility] Sodium 130(L) 136 - 145 mmol/L 11/19/2024 5:42 AM CDT [facility] Potassium 4.0 3.5 - 5.1 mmol/L 11/19/2024 5:42 AM CDT [facility] Chloride 94(L) 98 - 107 mmol/L 11/19/2024 5:42 AM CDT [facility] CO2 25 22 - 29 mmol/L 11/19/2024 5:42 AM CDT [facility] Calcium 9.1 8.4 - 10.4 mg/dL 11/19/2024 5:42 AM CDT [facility] Anion Gap 11 6 - 16 mmol/L 11/19/2024 5:42 AM CDT [facility] BUN 11 7 - 26 mg/dL 11/19/2024 5:42 AM CDT [facility] Creatinine 0.64 0.57 - 1.11 mg/dL 11/19/2024 5:42 AM CDT [facility] Alkaline Phosphatase 70 40 - 150 U/L 11/19/2024 5:42 AM CDT [facility] ALT 16 6 - 57 U/L 11/19/2024 5:42 AM CDT [facility] AST 24 10 - 48 U/L 11/19/2024 5:42 AM CDT [facility] Protein Total 6.9 6.4 - 8.3 gm/dL 11/19/2024 5:42 AM CDT [facility] Albumin 3.8 3.4 - 5.0 gm/dL 11/19/2024 5:42 AM CDT [facility] Bilirubin Total 0.9 0.2 - 1.2 mg/dL 11/19/2024 5:42 AM CDT [facility] eGFR by CKD-EPI 90 >=90 mL/min/1.7 3 m2 11/19/2024 5:42 AM CDT [facility] Blood BLOOD SPECIMEN / Unknown Venipuncture / Unknown 11/19/2024 5:05 AM CDT 11/19/2024 5:22 AM CDT María Sinha LIGHT OUT EXAMINER-[facility] - CHEMISTRY OR DERABLES Final Result Performing Organization Address [facility] Co de Phone Number [facility] [address] [place] [id number] * MAGNESIUM BLOOD (11/19/2024 5:05 AM CDT) [facility] Magnesium 2.2 1.6 - 2.6 mg/dL 11/19/2024 5:42 AM CDT [facility] Blood BLOOD SPECIMEN / Unknown Venipuncture / Unknown 11/19/2024 5:05 AM CDT 11/19/2024 5:22 AM CDT us María Sinha LIGHT OUT EXAMINER-[facility] - CHEMISTRY OR DERABLES Final Result Performing Organization Address [facility] Co de Phone Number [facility] [id number] [place] [address] [phone] * MRI Brain Wwo Contrast (10/08/2024 10:35 AM ENTERPRISE SYSTEMS ARCHITECT) Anatomical Region Laterality Modality Head Magnetic Resonan ce 10/08/2024 10:3 7 AM ENTER[employer]ISE SYSTEMS ARCHITECT Impressions 10/08/2024 11:02 AM ENTER[employer]ISE SYSTEMS ARCHITECT IMPRESSION: Cerebral atrophic changes. No acute infarct. No focal enhancing parenchymal lesion seen. > Interpreting Provider: Julia Robbins MD on 10/08/2024 11:02 AM Narrative 10/08/2024 11:02 AM ENTER[employer]ISE SYSTEMS ARCHITECT PROCEDURE: MRI BRAIN WWO CONTRAST, DATE/TIME OF EXAM: 10/08/2024 10:36 AM, LOCATION [facility] INDICATION: I60.9: Nontraumatic subarachnoid hemorrhage, unspecified (HCC) [...] CONTRAST, DATE/TIME OF EXAM: 10/08/2024 10:36AM, LOCATION [facility] INDICATION: I60.9: Nontraumatic subarachnoid hemorrhage, unspecified (HCC) [...] 11:02 AM Isabel Curtis MD MR ORDERABLES Final Result from Last 3 Months Insurance MEDICARE [place] [address] [place] [address] MEDICAID [facility] Advance Directives Documents on File Type Date Recorded Patient Computer Network Engineer Expl anation Adv Directive/Living Will/POA 12/07/2016 10:12 PM * Full Code (Latest Code Status on File) Date Activated Date Inactivated Comments 11/19/2024 12:03 AM 11/22/2024 3:40 PM * Full Code Date Activated Date Inactivated Comments 07/23/2024 8:57 PM 07/25/2024 5:41 PM * Full Code Date Activated Date Inactivated Comments 12/06/2016 1:24 AM 12/06/2016 11:23 AM Care Teams Conservation Agent Relationship Specialty Start Date End Date Mikaela Gardner, LIGHT OUT EXAMINER-CHAIR CAR DRIVER [address] [place] [address] PCP - General Nurse Practitioner Family 10/08/24
[2024-11-26 16:47] LABS: Alanine Aminotransferase 38 U/L (14-59); Albumin Level 3.8 g/dL (3.4-5.0); Alkaline Phosphatase 85 U/L (46-116); Anion Gap 6 mmol/L (4-12); Aspartate Amino Transferase 22 U/L (15-37); Bilirubin,Total 0.5 mg/dL (0.00-1.00); Blood Urea Nitrogen 16 mg/dL (7-18); Calcium 9.7 mg/dL (8.5-10.1); Carbon Dioxide 33 mmol/L (21-32); Chloride 101 mmol/L (98-108); Estimated Glomerular Filt Rate > 60; Glucose 115 mg/dL (70-99); Osmolality Calculated 292 mOsm/kg (285-295); Potassium 4.6 mmol/L (3.5-5.1); Sodium 140 mmol/L (136-145); Total Protein 7.3 g/dL (6.4-8.2)
== END 2024-11-26 15:46 | disposition home or self-care (01) ==
PROVIDERS: PCP Nurse Practitioner Family; Visit Provider Nurse Practitioner Family
DX: E87.1 Hypo-osmolality and hyponatremia (principal)
CPT/HCPCS: 36415; 80053

== ENCOUNTER 2025-01-22 09:38 | Outpatient (CLI) | payer MEDICARE, MEDICAID, SELFPAY ==
--- OUTSIDE RECORDS SUMMARY | 2025-01-22 10:43 | XMS_ITS | Clinical Summary ---
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 Gender Identity Not on file Sexual Orientation [...] on patient's age to complete this topic Human Papillomavirus (HPV) Immunization Aged Out No longer eligible based on patient's age to complete this topic Meningococcal Immunization (ACWY) Aged Out No longer eligible based on patient's age to complete this topic Rotavirus Immunization Aged Out No lo nger eligible based on patient's age to complete this topic Insurance MEDICARE [place]ICAID [place] Care Teams Carbide Operator Relationship Specialty Start Date End Date Homer Solis MD [address] [place] [phone] PCP - General General Surgery 07/30/24
--- OUTSIDE RECORDS SUMMARY | 2025-01-22 10:43 | XMS_ITS | Clinical Summary ---
Author Organization [facility] Address [address] [place] [address] Care Team Providers Care Audit Partner Name Role Phone Mikaela Gardner FUR VAULT ATTENDANT-WEIGHER OPERATOR Primary Care Provid er Source Comments [facility],non-owned Affiliates and Associated Physician Practices is amultiple site organization consisting of ambulatory clinics and hospital sitesin [place] and [place]. This disclosure is being madepursuant to the Care Everywhere program and may not contain all information available regarding this patient. Last updated 18.[facility] Allergies No known active allergies Medications * Be aware that medications may not be up to date on this document. Alwaysverify current medications with the patient. pravastatin (PRAVACHOL) 10 MG tablet Take 1 (one) tablet by mouth Active montelukast (Singulair) 10 MG tablet Take 1 (one) tablet by mouth at bedtime Active Cholecalciferol 1.25 MG (31047 UT) Take 1 (one) tablet by mouth [...] or Milk Free Supplement Examples: Ensure Plant/Orgain 5 Active levETIRAcetam (Keppra) 750 MG tablet Take 1 (one) tablet by mouth 2 times daily 180 tablet 3 5 Active diclofenac sodium (Voltaren) 1 % gel Apply 4 (four) g to affected area 4 times daily as needed 01/14/20 25 Discontin ued(List Clean-Up) levETIRAcetam (Keppra) 750 MG tablet Take 1 (one) tablet by mouth 2 times daily 60 tablet 1 5 01/08/20 25 Discontin ued(Reord er) Active Problems Problem Noted Date Diagnosed Date Syncope, unspecified syncope type 11/18/2024 Subarachnoid hemorrhage 07/23/2024 Benign essential HTN 12/05/2016 Hyperlipidemia 12/05/2016 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 Encounters Date Type Department Care Team Description 01/13/2025 1:30 PM CDT Office Visit [facility] [address], [address] [place] [address] Ranulfo Sauceda MD Benign essential HTN (Primary Dx); Syncope, unspecified syncope type 01/13/2025 Travel 01/07/2025 1:40 PM CDT Office Visit [facility] [address] [address] [facility] [address] [place] [phone] Daniel Wagner MD Seizure (HCC) (Primary Dx); Benign essential HTN; Subarachnoid hemorrhage (HCC) 01/07/2025 Travel 01/02/2025 Telephone [facility] [address] [facility] [facility] [address] [place] [phone] Daniel Wagner MD Appointment 11/19/2024 Travel 11/18/2024 11:51 PM CDT - 11/22/2024 2:40 PM CDT Hospital Encounter [facility] 7S TELE/NEURO [address] [place] [address] Olga Lidia Valenzuela MD Thekekara, Joel, MD Hospitalist Discharge Disposition: Home or Self Care from Last 3 Months Family History Medical [...] Recorded Patient Health Questionnaire-2 Score 0 07/25/2024 [facility] [place] of Occupat ional Health - Occupational Stress [...] any time in the past 12 m [facility], were you homeless or living in a care home (including now)? No 11/19/2024 Comments No Sex and Gender Information Value Date Recorded Sex Assigned at Not on file Legal Sex Female 11:09 AM CDT Gender Identity Not on file Sexual Orientation Not on file Last Filed Vital Signs Vital Sign Reading Time Taken Comments Blood Pressure 139/78 01/13/2025 1:20 PM CDT Pulse 79 01/13/2025 1:20 PM CDT Temperature 36.7 C (98 F) 01/13/2025 1:20 PM CDT Respiratory Rate 17 11/22/2024 7:49 AM CDT Oxygen Saturation 97% 01/13/2025 1:20 PM CDT Inhaled Oxygen Concentration - - Weight 67.3 kg (148 lb 6.4 oz) 01/13/2025 1:20 P M CDT Height 170.2 cm (5' 7) 01/07/2025 1:54 PM CDT Body Mass Index 23.24 01/07/2025 1:54 PM CDT Plan of Treatment Upcoming Encounters Date Type Department Care Team (Late st Contact Info) Description 04/08/2025 2:00 PM CDT Office Visit [facility] [address] [facility] [address] [facility] [address] [place] [phone] Isabel Curtis [place] [id number] [place] [address] [address] [place] [phone] 01/13/2026 10:00 AM CDT Office Visit [facility] [address] [address] [facility] [address], [address] [place] [address] [place] [address] [facility] [address] [place] [phone] 01/13/2026 11:20 AM CDT Office Visit [facility] [address] [facility] [address] [facility] [address] [place] [phone] [place] [address] [place] [address] [place] [address] Health Maintenance Due Date Last Done Comments [...] this topic Medical Devices Implanted Type Area Bulk Cooler Installer Device Identifier Shelf Expiration Date Model / Serial / Lot Cmpnt Glnd 27mm Std Miah Xtend Metaglene Implanted:Qty: 1 on 12/05/2016 by Raphael Martinez MD at [facility] Right: Shoulder [employer] 09/13/2021 1307-60-000 / / [id number] Biostop G Bioresorbable Cement Restrictor Implanted:Qty: 1 on 12/05/2016 by Raphael Martinez MD at [facility] Right: Shoulder [employer] 05/13/2018 5463-08-000 / / [id number] Delta Xtend Humeral Pe Cup Implanted:Qty: 1 on 12/05/2016 by Raphael Martinez MD at [facility] Right: Shoulder [employer] 09/13/2021 1307-42-206 / / [id number] Sys Shld Tot Arthroplst Rev Implanted:Qty: 1 on 12/05/2016 by Raphael Martinez MD at [facility] [employer] S4 DEPUY / / Delta Xtend Locking Metaglene Screw Implanted:Qty: 1 on 12/05/2016 by Raphael Martinez MD at [facility] Right: Shoulder [employer] 07/13/2021 1307-90-024 / / [id number] Delta Xtend Locking Metaglene Screw Implanted:Qty: 1 on 12/05/2016 by Raphael Martinez MD at [facility] Right: Shoulder [employer] 06/13/2021 130-90-024 / / [id number] Screw 4.5mm 30mm Shldr Glnd Lck Miah Implanted:Qty: 1 on 12/05/2016 by Raphael Martinez MD at [facility] Right: Shoulder [employer] 08/13/2021 1307-90-030 / / [id number] Delta Xtend Glenosphere Implanted:Qty: 1 on 12/05/2016 by Raphael Martinez MD at [facility] Right: Shoulder [employer] 09/13/2021 1307-60-142 / / [id number] Screw 4.5mm 30mm Shldr Glnd Lck Miah Implanted:Qty: 1 on 12/05/2016 by Raphael Martinez MD at [facility] Right: Shoulder [employer] 09/13/2021 1307-90-030 / / [id number] Cmnt Bone Sst Gnta 40gm Hvisc Implanted:Qty: 1 on 12/05/2016 by Raphael Martinez MD at [facility] Right: Shoulder [employer] 05/13/2018 [id number] / / [id number] Cmnt Bone Sst Gnta 40gm Hvisc Implanted:Qty: 1 on 12/05/2016 by Raphael Martinez MD at [facility] Right: Shoulder [employer] 05/13/2018 [id number] / / [id number] Delta Xtend Monobloc Hum Epiphysis Implanted:Qty: 1 on 12/05/2016 by Raphael Martinez MD at [facility] Right: Shoulder [employer] 07/13/2021 1307-08-100 / / [id number] Procedures Procedure Name Priority Date/Time Associated Diagnosis Comments CARDIAC RHYTHM STRIP ORDER 11/25/2024 5:01 PM CDT EVENT MONITOR Routine 11/22/2024 12:00 PM CDT Syncope, unspecified syncope type CBC W AUTO DIFFERENTIAL AM Draw 11/22/2024 [...] DIFFERENTIAL AM Draw 11/19/2024 5:05 AM CDT from Last 3 Months Results * CARDIAC RHYTHM STRIP ORDER (11/25/2024 5:01 PM CDT) Narrative 11/25/2024 5:01 PM CDT Ordered by an unspecified provider. us Scanned Document CARDIAC SERVICES ORDERABLES Fin al Result * EVENT MONITOR (11/22/2024 12:00 PM CDT) 11/22/2024 12:0 0 PM CDT Narrative Procedure Note Betsy Hancock MD - 11/22/2024 2:40 PM CDT [facility] 30-DAY EVENT RECORDER REPORT PATIENT: LISS PRINCE MR#: [id number] DATE SERVICE BEGAN: 11/22/2024 CSN: [id number] DATE SERVICE ENDED: AGE: 79 ADMIT DATE: 11/18/2024 :1945 REFERRING PHYSICIAN: GUS NIÑO MD The patient underwent monitoring of the rhythm using an event monitor for30 days. Predominant underlying rhythm is sinus. Episodic sinus bradycardia noted with the lowest heart rate 45 beats per minute. Occasional premature under complexes noted. Rare premature atrial complexes noted. Type 1 second-degree AV block, i.e., Wenckebach AV block noted. One 2.4-second pause noted. No other advanced conduction abnormality noted. No nonsustained or sustained ventricular arrhythmia noted. BETSY HANCOCK MD ASN/MODL #: [id number] 30-DAY EVENT RECORDER REPORT - DP us Gus Niño MD CARDIAC SERVICES ORDERABLES Fi nal Result [facility] * (ABNORMAL) CBC W AUTO DIFFERENTIAL (11/22/2024 5:44 AM CDT) Only the most recent of4 resultswithin the time period is included. WBC 6.7 4.0 - 10.7 x10E9/L 11/22/2024 6:12 AM CDT [facility] RBC Count 3.85(L) 3.90 - 5.20 x10E12/L 11/22/2024 6:12 AM CDT [facility] Hemoglobin 12.4 11.9 - 15.8 g/dL 11/22/2024 6:12 AM CDT [facility] Hematocrit 35.0 34.8 - 46.1 % 11/22/2024 6:12 AM CDT [facility] MCV 90.9 80.0 - 98.0 fL 11/22/2024 6:12 AM CDT [facility] MCH 32.2 26.7 - 33.6 pg 11/22/2024 6:12 AM CDT [facility] MCHC 35.4 31.7 - 36.3 g/dL 11/22/2024 6:12 AM CDT [facility] RDW-CV 11.7 11.3 - 14.8 % 11/22/2024 6:12 AM CDT [facility] Platelet Count 144(L) 150 - 420 x10E9/L 11/22/2024 6:12 AM CDT [facility] MPV 9.7 7.8 - 11.4 fL 11/22/2024 6:12 AM CDT [facility] Neutrophil % 47.6 41.0 - 74.0 % 11/22/2024 6:12 AM CDT [facility] Lymphocyte % 39.3 17.0 - 47.0 % 11/22/2024 6:12 AM CDT [facility] Monocyte % 10.5 3.0 - 11.0 % 11/22/2024 6:12 AM CDT [facility] Eosinophil % 1.7 0.0 - 7.0 % 11/22/2024 6:12 AM CDT [facility] Basophil % 0.6 0.0 - 1.6 % 11/22/2024 6:12 AM CDT [facility] Immature Granulocytes % 0.3 0.0 - 1.0 % 11/22/2024 6:12 AM CDT [facility] Neutrophil Absolute 3.17 1.60 - 7.50 x10E9/L 11/22/2024 6:12 AM CDT [facility] Lymphocyte Absolute 2.62 1.00 - 4.40 x10E9/L 11/22/2024 6:12 AM CDT [facility] Monocyte Absolute 0.70 0.15 - 1.00 x10E9/L 11/22/2024 6:12 AM CDT [facility] Eosinophil Absolute 0.11 0.00 - 0.60 x10E9/L 11/22/2024 6:12 AM CDT [facility] Basophil Absolute 0.04 0.00 - 0.13 x10E9/L 11/22/2024 6:12 AM CDT [facility] Blood BLOOD SPECIMEN / Unknown Venipuncture / Unknown 11/22/2024 5:44 AM CDT 11/22/2024 6:07 AM CDT us Gus Niño MD LAB - HEMATOLOGY ORDERABLES Fi nal Result [facility] [address] [place] [address] * (ABNORMAL) RENAL FUNCTION PANEL (11/22/2024 5:44 AM CDT) Only the most recent of3 resultswithin the time period is included. [facility] Glucose 97 70 - 99 mg/dL 11/22/2024 6:29 AM CDT [facility] Sodium 129(L) 136 - 145 mmol/L 11/22/2024 6:29 AM CDT [facility] Potassium 4.5 3.5 - 5.1 mmol/L 11/22/2024 6:29 AM CDT [facility] Chloride 97(L) 98 - 107 mmol/L 11/22/2024 6:29 AM CDT [facility] CO2 27 22 - 29 mmol/L 11/22/2024 6:29 AM CDT [facility] Calcium 8.4 8.4 - 10.4 mg/dL 11/22/2024 6:29 AM T [facility] Anion Gap 5(L) 6 - 16 mmol/L 11/22/2024 6:29 AM CDT [facility] BUN 14 7 - 26 mg/dL 11/22/2024 6:29 AM CDT [facility] Creatinine 0.61 0.57 - 1.11 mg/dL 11/22/2024 6:29 AM CDT [facility] Albumin 3.0(L) 3.4 - 5.0 gm/dL 11/22/2024 6:29 AM T [facility] Phosphorus 3.2 2.5 - 4.5 mg/dL 11/22/2024 6:29 AM T [facility] eGFR by CKD-EPI >90 >=90 mL/min/1.7 3 m2 11/22/2024 6:29 AM CDT [facility] Blood BLOOD SPECIMEN / Unknown Venipuncture / Unknown 11/22/2024 5:44 AM CDT 11/22/2024 6:07 AM CDT us Gus Niño MD LAB - CHEMISTRY ORDERABLES Fin al Result [facility] [address] [place] [address] * SODIUM URINE RANDOM (11/21/2024 1:41 PM CDT) Sodium Urine 59 mmol/L 11/21/2024 2:04 PM CDT [facility] Urine URINE SPECIMEN OBTAINED BY CLEAN CATCH PROCEDURE / Unknown Collection / Unknown 11/21/2024 1:41 PM CDT 11/21/2024 1:43 PM CDT us Yi Hills MD LAB - URINE CHEMISTRY ORDERAB LES Final Result Performing Organization Address [facility] Co de Phone Number [facility] [id number] [place] [address] * OSMOLALITY URINE (11/21/2024 1:41 PM CDT) [facility] Osmolality Urine 300 50 - 1,200 mOsm/kg 11/21/2024 2:02 PM CDT [facility] Urine URINE SPECIMEN OBTAINED BY CLEAN CATCH PROCEDURE / Unknown Collection / Unknown 11/21/2024 1:41 PM CDT 11/21/2024 1:43 PM CDT us Yi Hills MD LAB - URINE CHEMISTRY ORDERAB LES Final Result Performing Organization Address [facility] de Phone Number [facility] [id number] [place] [address] * ECHO COMPLETE W CONTRAST (11/20/2024 1:29 PM CDT) [facility] AV area index 1.214 cm /m [facility] [...] 12:47 PM Patient Status: I/P Study Site: [facility] Primary Location: [facility] EStudy Info Exam Type: ECHO COMPLETE W CONTRAST Indications R55 - Syncope, unspecified syncope type Procedure(s) * A complete 2D, color Doppler, spectral Doppler, and M-Mode transthoracic echocardiogram with Definity was performed. Staff Referring Physician: Gus Niño Ordering Provider: Gus Niño Attending Physician: Gus Niño Mh Teacher: Raquel Goins Left Ventricle The left ventricle [...] 2.5 cm 2.7-3.8 Report Signatures Amended by Betsy Hancock on 11/21/2024 01:59 PM Finalized by Betsy Hancock on 11/20/2024 08:11 PM Procedure Note Betsy Hancock MD - 11/21/2024 Summary * The [...] 12:47 PM Patient Status: I/P Study Site: [facility] Primary Location: [facility] EStudy Info Exam Type: ECHO COMPLETE W CONTRAST Indications R55 - Syncope, unspecified syncope type Procedure(s) * A complete 2D, color Doppler, spectral Doppler, and M-Modetransthoracic echocardiogram with Definity was performed. Staff Referring Physician: Gus Niño Ordering Provider: Gus Niño Attending Physician: Gus Niño Mh Teacher: Raquel Goins Left Ventricle The left ventricle [...] 2.5 cm 2.7-3.8 Report Signatures Amended by Betsy Hancock on 11/21/2024 01:59 PM Finalized by Betsy Hancock on 11/20/2024 08:11 PM us Gus Niño MD ECHO CUPID Edited Result - Final [...] DATE/TIME OF EXAM: 11/19/2024 11:37 PM, LOCATION [facility] INDICATION: I60.9: Nontraumatic subarachnoid hemorrhage, unspecified [...] and left vertebral arteries.. There is normal terry/white matter differentiation. I do not see any evidence of hemorrhage, edema, mass or mass-effect. There are no extra-axial fluid collections. The paranasal sinuses included in the study are well aerated. No specific bony abnormalities are seen. Procedure Note Bhupendra Cespedes MD - 11/20/2024 PROCEDURE: CT HEAD WO CONTRAST, DATE/TIME OF EXAM: 11/19/2024 11:37 PM, LOCATION [facility] INDICATION: I60.9: Nontraumatic subarachnoid hemorrhage, unspecified(HCC) [...] Cespedes MD on 11/20/2024 7:58 AM us Gus Niño MD CT ORDERABLES Final Result * EEG (11/19/2024 3:58 PM CDT) Narrative [facility] - 11/19/2024 3:58 PM CDT [...] indicate drowsiness. Sleep spindles are absent. The environmental monitoring technician indicates a pulse at 90 beats per minute Over breathing and post over breathing are not performed. Photic stimulation was not performed No focal, paroxysmal or lateralizing abnormalities are present in this record. Impression: Normal EEG for age Kieran Ferreira MD us María Sinha FUR VAULT ATTENDANT-WEIGHER OPERATOR NEUROLOGY ORDERABL ES Final Result [facility] * (ABNORMAL) LEVETIRACETAM LEVEL (11/19/2024 5:05 AM CDT) Levetiracetam 7.46(L) 10 - 40 ug/mL 11/19/2024 10:13 AM CDT [facility] Blood BLOOD SPECIMEN / Unknown Venipuncture / Unknown 11/19/2024 5:05 AM CDT 11/19/2024 5:22 AM CDT María Sinha FUR VAULT ATTENDANT-WEIGHER OPERATOR LAB - THER APEUTIC DRUG MONITORING ORDERABLES Final Result [facility] [address] [place] [address] * (ABNORMAL) COMPREHENSIVE METABOLIC PANEL (11/19/2024 5:05 AM CDT) Glucose 115(H) 70 - 99 mg/dL 11/19/2024 5:42 AM CDT [facility] Sodium 130(L) 136 - 145 mmol/L 11/19/2024 5:42 AM CDT [facility] Potassium 4.0 3.5 - 5.1 mmol/L 11/19/2024 5:42 AM CDT [facility] Chloride 94(L) 98 - 107 mmol/L 11/19/2024 5:42 AM CDT [facility] CO2 25 22 - 29 mmol/L 11/19/2024 5:42 AM CDT [facility] Calcium 9.1 8.4 - 10.4 mg/dL 11/19/2024 5:42 AM CDT [facility] Anion Gap 11 6 - 16 mmol/L 11/19/2024 5:42 AM CDT [facility] BUN 11 7 - 26 mg/dL 11/19/2024 5:42 AM CDT [facility] Creatinine 0.64 0.57 - 1.11 mg/dL 11/19/2024 5:42 AM CDT [facility] Alkaline Phosphatase 70 40 - 150 U/L 11/19/2024 5:42 AM CDT [facility] ALT 16 6 - 57 U/L 11/19/2024 5:42 AM CDT [facility] AST 24 10 - 48 U/L 11/19/2024 5:42 AM CDT [facility] Protein Total 6.9 6.4 - 8.3 gm/dL 11/19/2024 5:42 AM CDT [facility] Albumin 3.8 3.4 - 5.0 gm/dL 11/19/2024 5:42 AM CDT [facility] Bilirubin Total 0.9 0.2 - 1.2 mg/dL 11/19/2024 5:42 AM CDT [facility] eGFR by CKD-EPI 90 >=90 mL/min/1.7 3 m2 11/19/2024 5:42 AM CDT [facility] Blood BLOOD SPECIMEN / Unknown Venipuncture / Unknown 11/19/2024 5:05 AM CDT 11/19/2024 5:22 AM CDT María Lerner Ernestine FUR VAULT ATTENDANT-WEIGHER OPERATOR LAB - CHEMISTRY OR DERABLES Final Result Performing Organization Address [facility] Co de Phone Number [facility] [address] [place] [address] * MAGNESIUM BLOOD (11/19/2024 5:05 AM CDT) Magnesium 2.2 1.6 - 2.6 mg/dL 11/19/2024 5:42 AM CDT [facility] Blood BLOOD SPECIMEN / Unknown Venipuncture / Unknown 11/19/2024 5:05 AM CDT 11/19/2024 5:22 AM CDT us María Lerner Ernestine FUR VAULT ATTENDANT-WEIGHER OPERATOR LAB - CHEMISTRY OR DERABLES Final Result Performing Organization Address [facility] de Phone Number [facility] [address] [place] [address] from Last 3 Months Insurance MEDICARE MEDICAID - [place] MEDICARE MEDICAID - [facility] Advance Directives Documents on File Type Date Recorded Patient Pharmaceutical Specialty Representative Expl anation Adv Directive/Living Will/POA 12/07/2016 10:12 PM * Full Code (Latest Code Status on File) Date Activated Date Inactivated Comments 11/19/2024 12:03 AM 11/22/2024 3:40 PM * Full Code Date Activated Date Inactivated Comments 07/23/2024 8:57 PM 07/25/2024 5:41 PM * Full Code Date Activated Date Inactivated Comments 12/06/2016 1:24 AM 12/06/2016 11:23 AM Care Teams Audit Partner Relationship Specialty Start Date End Date Mikaela Gardner, FUR VAULT ATTENDANT-WEIGHER OPERATOR [address] [place] [address] PCP - General Nurse Practitioner Family 10/08/24
[2025-01-22 11:09] LABS: Albumin Level 3.9 g/dL (3.5-5.1); Anion Gap 2 mmol/L (4-12); Blood Urea Nitrogen 21 mg/dL (7-17); Calcium 8.9 mg/dL (8.4-10.2); Carbon Dioxide 31 mmol/L (22-30); Chloride 102 mmol/L (98-107); Estimated Glomerular Filt Rate > 60; Glucose 103 mg/dL (65-110); Osmolality Calculated 283 mOsm/kg (285-295); Phosphorus 3.6 mg/dL (2.5-4.5); Potassium 4.5 mmol/L (3.4-5.0); Sodium 135 mmol/L (137-145)
== END 2025-01-22 09:39 | disposition home or self-care (01) ==
LOC: CHSLAB 09:41
PROVIDERS: PCP Nurse Practitioner Family; Visit Provider Internal Medicine Nephrology
DX: E87.1 Hypo-osmolality and hyponatremia (principal)
CPT/HCPCS: 36415; 80069

== ENCOUNTER 2025-04-23 13:43 | Outpatient (CLI) | payer MEDICARE, MEDICAID, SELFPAY ==
--- OUTSIDE RECORDS SUMMARY | 2025-04-23 14:23 | XMS_ITS | Clinical Summary ---
Author Organization [facility] Address [address] [place] [address] Care Team Providers Care Window Machine Operator Name Role Phone Mikaela Gardner TIRE REPAIR MECHANIC-COUNTER HOP Primary Care Provid er Source Comments [facility],non-owned Affiliates and Associated Physician Practices is amultiple site organization consisting of ambulatory clinics and hospital sitesin [place], [place], [place] and [place]. This disclosure is being madepursuant to the Care Everywhere program and may not contain all information available regarding this patient. Last updated 18.[facility] Allergies No known active allergies Medications * Be aware that medications may not be up to date on this document. Alwaysverify current medications with the patient. pravastatin (PRAVACHOL) 10 MG tablet Take 1 (one) tablet by mouth Active montelukast (Singulair) 10 MG tablet Take 1 (one) tablet by mouth at bedtime Active Cholecalciferol 1.25 MG (69476 UT) Take 1 (one) tablet by mouth [...] Protein Supplement Examples: Ensure High Protein/Boost High Protein/Premier Protein High Calorie High Protein Supplement Examples: Ensure Enlive/Ensure Plus High Protein/Boost Plus/Equate Plus Clear Liquid Supplement Examples: Ensure Clear/Premier Protein Clear/Resource Boost Breeze/Prosourc e High Protein Gelatin Vegan or Milk Free Supplement Examples: Ensure Plant/Orgain 5 Active levETIRAcetam (Keppra) 750 MG tablet Take 1 (one) tablet by mouth 2 times daily 180 tablet 3 5 Active amLODIPine (Norvasc) 10 MG tablet 5 Active Active Problems Problem Noted Date Diagnosed Date Syncope, unspecified syncope type 11/18/2024 Subarachnoid hemorrhage 07/23/2024 Benign essential HTN 12/05/2016 Hyperlipidemia 12/05/2016 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 No 11/19/2024 Comments No Sex and Gender Information Value Date Recorded Sex Assigned at Not on file Legal Sex Female 11:09 AM CDT Gender Identity Not on file Sexual Orientation Not on file Last Filed Vital Signs Vital Sign Reading Time Taken Comments Blood Pressure 175/76 04/08/2025 1:55 PM CDT Pulse 65 04/08/2025 1:55 PM CDT Temperature 36.7 C (98 F) 01/13/2025 1:20 PM CDT Respiratory Rate 17 11/22/2024 7:49 AM CDT Oxygen Saturation 98% 04/08/2025 1:55 PM CDT Inhaled Oxygen Concentration - - Weight 65.8 kg (145 lb) 04/08/2025 1:55 PM CDT Height 170.2 cm (5' 7) 01/07/2025 1:54 PM CDT Body Mass Index 22.71 01/07/2025 1:54 PM CDT Plan of Treatment Upcoming Encounters Date Type Department Care Team (Late st Contact Info) Description 01/13/2026 10:00 AM CDT Office Visit [facility] Care [address], [address] [place], [place] [id number] [place] [address] [address] [address] [place] [phone] 01/13/2026 11:20 AM CDT Office Visit [facility] Neuro[facility] [address] [place] [phone] [place] [address] [facility] [address] [place], [place] [id number] Health Maintenance Due Date Last Done Comments BONE DENSITY TESTING 1945 MEDICARE AWV 12 MONTHS 1945 HEPATITIS C SCREENING 09/12/1964 DTAP/TDAP/TD VACCINES (1 - Tdap) 1965 PNEUMOCOCCAL VACCINE 50+ (1 of 1 - PCV) 1996 ZOSTER VACCINE (1 of 2) 1996 Respiratory Syncytial Virus (RSV) Vaccine Pt: or over 60 yrs (1 - 1-dose 75+ series) 2021 DEPRESSION SCREENING 08/14/2024 COVID-19 VACCINE ( season) 2025 05/31/2023, 10/26/2022, 01/04/2022, Additional history exists INFLUENZA VACCINE (#1) 2025 , 05/31/2023, 06/08/2022, Additional history exists HEPATITIS B VACCINE [...] this topic Medical Devices Implanted Type Area Superintendent Pipelines Device Identifier Shelf Expiration Date Model / Serial / Lot Cmpnt Glnd 27mm Std Miah Xtend Metaglene Implanted:Qty: 1 on 12/05/2016 by Raphael Martinez MD at [facility] Right: Shoulder [employer] 09/13/2021 1307-60-000 / / [id number] Biostop G Bioresorbable Cement Restrictor Implanted:Qty: 1 on 12/05/2016 by Raphael Martinez MD at [facility] Right: Shoulder [employer] 05/13/2018 5463-08-000 / / [id number] Delta Xtend Humeral Pe Cup Implanted:Qty: 1 on 12/05/2016 by Raphael Martinez MD at [facility] Right: Shoulder [employer] 09/13/2021 1307-42-206 / / [id number] Sys Shld Tot Arthroplst Rev Implanted:Qty: 1 on 12/05/2016 by Raphael Martinez MD at [facility] [employer] S4 DEPUY / / Delta Xtend Locking Metaglene Screw Implanted:Qty: 1 on 12/05/2016 by Raphael Martinez MD at [facility] Right: Shoulder [employer] 07/13/2021 130-90-024 / / [id number] Delta Xtend Locking Metaglene Screw Implanted:Qty: 1 on 12/05/2016 by Raphael Martinez MD at [facility] Right: Shoulder [employer] 06/13/2021 1307-90-024 / / [id number] Screw 4.5mm 30mm Shldr Glnd Lck Miah Implanted:Qty: 1 on 12/05/2016 by Raphael Martinez MD at [facility] Right: Shoulder [employer] 08/13/2021 1307-90-030 / / [id number] Delta Xtend Glenosphere Implanted:Qty: 1 on 12/05/2016 by Raphael Martinez MD at [facility] Right: Shoulder [employer] 09/13/2021 1307-60-142 / / [id number] Screw 4.5mm 30mm Shldr Glnd Lck Miah Implanted:Qty: 1 on 12/05/2016 by Raphael Martinez MD at [facility] Right: Shoulder [employer] 09/13/2021 1307-90-030 / / [id number] Cmnt Bone Sst Gnta 40gm Hvisc Implanted:Qty: 1 on 12/05/2016 by Raphael Martinez MD at [facility] Right: Shoulder [employer] 05/13/2018 [id number] / / [id number] Cmnt Bone Sst Gnta 40gm Hvisc Implanted:Qty: 1 on 12/05/2016 by Raphael Martinez MD at [facility] Right: Shoulder [employer] 05/13/2018 [id number] / / [id number] Delta Xtend Monobloc Hum Epiphysis Implanted:Qty: 1 on 12/05/2016 by Raphael Martinez MD at [facility] Right: Shoulder [employer] 07/13/2021 1307-08-100 / / [id number] Insurance MEDICARE MEDICAID - [place] MEDICARE MEDICAID - OUT OF STATE Advance Directives Documents on File Type Date Recorded Patient Food Aide Expl anation Adv Directive/Living Will/POA 12/07/2016 10:12 PM * Full Code (Latest Code Status on File) Date Activated Date Inactivated Comments 11/19/2024 12:03 AM 11/22/2024 3:40 PM * Full Code Date Activated Date Inactivated Comments 07/23/2024 8:57 PM 07/25/2024 5:41 PM * Full Code Date Activated Date Inactivated Comments 12/06/2016 1:24 AM 12/06/2016 11:23 AM Care Teams Window Machine Operator Relationship Specialty Start Date End Date Mikaela Gardner, TIRE REPAIR MECHANIC-COUNTER HOP [address] [place] [address] PCP - General Nurse Practitioner Family 10/08/24
--- OUTSIDE RECORDS SUMMARY | 2025-04-23 14:23 | XMS_ITS | Clinical Summary ---
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 Gender Identity Not on file Sexual Orientation Not on file Plan of Treatment Health Maintenance Due Date Last Done Comments DEXA Bone Density 1945 Hepatitis C Virus (HCV) Screening 1945 Zoster Immunization (1 of 2) 1996 Pneumococcal Immunization (50+ years) (2 of 2 - PCV) 04/29/2014 04/29/2013 Respiratory Syncytial Virus (RSV) Immunization (Adult) (1 - 1-dose 75+ series) 2021 Influenza Immunization (#1) 2025 11/0 12/2023, 05/31/2023, 06/08/2022, Additional history exists SARS-COV-2 Immunization ( season) 2025 05/31/2023, 10/26/2022, 01/04/2022, Additional history exists TdaP Immunization Completed 12/10/2021 Hepatitis B Immunization Aged Out No longer [...] topic Insurance MEDICARE MEDICAID [place] Care Teams Utility Systems Repairer Operator Relationship Specialty Start Date End Date Homer Solis MD [address] [place] [address] PCP - General General Surgery 07/30/24
[2025-04-23 14:34] LABS: Albumin Level 3.9 g/dL (3.5-5.1); Anion Gap 7 mmol/L (4-12); Blood Urea Nitrogen 25 mg/dL (7-17); Calcium 9.5 mg/dL (8.4-10.2); Carbon Dioxide 30 mmol/L (22-30); Chloride 104 mmol/L (98-107); Estimated Glomerular Filt Rate > 60; Glucose 99 mg/dL (65-110); Osmolality Calculated 296 mOsm/kg (285-295); Potassium 4.9 mmol/L (3.4-5.0); Sodium 141 mmol/L (137-145)
== END 2025-04-23 13:44 | disposition home or self-care (01) ==
LOC: CHSLAB 13:44
PROVIDERS: PCP Nurse Practitioner Family; Visit Provider Internal Medicine Nephrology
DX: E87.1 Hypo-osmolality and hyponatremia (principal)
CPT/HCPCS: 36415; 80069

== ENCOUNTER 2025-05-14 09:18 | Outpatient (CLI) | payer MEDICARE, MEDICAID, SELFPAY ==
--- NOTE | ~2025-05-14 | MM_ITS ---
EXAMINATION: MM screening [facility] BI w sergio HISTORY: Screening TECHNIQUE: Craniocaudal and mediolateral oblique 3-D tomosynthesis images were obtained and synthetic 2-D images were generated. CAD analysis was submitted and interpreted. COMPARISON: Comparison to multiple prior studies sequentially, with oldest reviewed study dated 04/26/2021. BREAST PARENCHYMAL COMPOSITION: Not dense: There are scattered areas of fibroglandular density. FINDINGS: There is no evidence of suspicious mass, calcification, or architectural distortion to suggest malignancy in either breast. There has been no suspicious interval change. IMPRESSION: 1. No mammographic evidence of malignancy. 2. Recommend routine screening mammography in one year. BI-RADS Category 1: Negative Reviewed, dictated and finalized at location B.
--- OUTSIDE RECORDS SUMMARY | 2025-05-14 09:48 | XMS_ITS | Clinical Summary ---
Author Organization [facility] Address [address] [place] [address] Care Team Providers Care Semiconductor Processing Technician Name Role Phone Mikaela Gardner STRATEGIC BUSINESS DEVELOPMENT-ARCHITECTURAL ASSOCIATE Primary Care Provid er Source Comments [facility],non-owned Affiliates and Associated Physician Practices is amultiple site organization consisting of ambulatory clinics and hospital sitesin [place], [place] and [place]. This disclosure is being madepursuant to the Care Everywhere program and may not contain all information available regarding this patient. Last updated 18.[facility] Allergies No known active allergies Medications * Be aware that medications may not be up to date on this document. Alwaysverify current medications with the patient. pravastatin (PRAVACHOL) 10 MG tablet Take 1 (one) tablet by mouth Active montelukast (Singulair) 10 MG tablet Take 1 (one) tablet by mouth at bedtime Active Cholecalciferol 1.25 MG (71911 UT) Take 1 (one) tablet by mouth [...] Description 04/08/2025 2:00 PM CDT Office Visit Counts include 234 beds at the [facility] [address] [phone] Isabel Curtis MD Seizure (HCC) (Primary Dx); [...] Recorded Patient Health Questionnaire-2 Score 0 07/25/2024 [facility] [place] of Occupat ional Health - Occupational Stress [...] any time in the past 12 [facility], were you homeless or living in a nursing home (including now)? No 11/19/2024 Comments No [...] Description 01/13/2026 10:00 AM CDT Office Visit [facility] Health Heart [facility] Vascular Care [address], [address] [place], [place] [id number] [place] [address] [address] [facility] [address] [place] [phone] 01/13/2026 11:20 AM CDT Office Visit [facility] Health Neurosciences [address] [place] [phone] [place] [address] [facility] [address] [place], [place] [phone] Health Maintenance Due Date Last Done Comments [...] this topic Medical Devices Implanted Type Area Waiter Device Identifier Shelf Expiration Date Model / Serial / Lot Cmpnt Glnd 27mm Std Miah Xtend Metaglene Implanted:Qty: 1 on 12/05/2016 by Raphael Martinez MD at [facility] Right: Shoulder [employer] 09/13/2021 1307-60-000 / / [id number] Biostop G Bioresorbable Cement Restrictor Implanted:Qty: 1 on 12/05/2016 by Raphael Martinez MD at [facility] Right: Shoulder [employer] 05/13/2018 5463-08-000 / / [id number] Delta Xtend Humeral Pe Cup Implanted:Qty: 1 on 12/05/2016 by Raphael Martinez MD at [facility] Right: Shoulder [employer] 09/13/2021 1307-42-206 / / [id number] Sys Shld Tot Arthroplst Rev Implanted:Qty: 1 on 12/05/2016 by Raphael Martinez MD at [facility] [employer] S4 DEPUY / / Delta Xtend Locking Metaglene Screw Implanted:Qty: 1 on 12/05/2016 by Raphael Martinez MD at [facility] Right: Shoulder [employer] 07/13/2021 130-90-024 / / [id number] Delta Xtend Locking Metaglene Screw Implanted:Qty: 1 on 12/05/2016 by Raphael Martinez MD at [facility] Right: Shoulder [employer] 06/13/2021 1307-90-024 / / [id number] Screw 4.5mm 30mm Shldr Glnd Lck Miah Implanted:Qty: 1 on 12/05/2016 by Raphael Martinez MD at [facility] Right: Shoulder [employer] 08/13/2021 1307-90-030 / / [id number] Delta Xtend Glenosphere Implanted:Qty: 1 on 12/05/2016 by Raphael Martinez MD at [facility] Right: Shoulder [employer] 09/13/2021 1307-60-142 / / [id number] Screw 4.5mm 30mm Shldr Glnd Lck Miah Implanted:Qty: 1 on 12/05/2016 by Raphael Martinez MD at [facility] Right: Shoulder [employer] 09/13/2021 1307-90-030 / / [id number] Cmnt Bone Sst Gnta 40gm Hvisc Implanted:Qty: 1 on 12/05/2016 by Raphael Martinez MD at [facility] Right: Shoulder [employer] 05/13/2018 [id number] / / [id number] Cmnt Bone Sst Gnta 40gm Hvisc Implanted:Qty: 1 on 12/05/2016 by Raphael Martinez MD at [facility] Right: Shoulder [employer] 05/13/2018 [id number] / / [id number] Delta Xtend Monobloc Hum Epiphysis Implanted:Qty: 1 on 12/05/2016 by Raphael Martinez MD at [facility] Right: Shoulder [employer] 07/13/2021 1307-08-100 / / [id number] Insurance MEDICARE MEDICAID - [place] MEDICARE MEDICAID - OUT OF STATE Advance Directives Documents on File Type Date Recorded Patient Refuse Collector Expl anation Adv Directive/Living Will/POA 12/07/2016 10:12 PM * Full Code (Latest Code Status on File) Date Activated Date Inactivated Comments 11/19/2024 12:03 AM 11/22/2024 3:40 PM * Full Code Date Activated Date Inactivated Comments 07/23/2024 8:57 PM 07/25/2024 5:41 PM * Full Code Date Activated Date Inactivated Comments 12/06/2016 1:24 AM 12/06/2016 11:23 AM Care Teams Semiconductor Processing Technician Relationship Specialty Start Date End Date Mikaela Gardner, STRATEGIC BUSINESS DEVELOPMENT-ARCHITECTURAL ASSOCIATE [address] [place] [address] PCP - General Nurse Practitioner Family 10/08/24
--- OUTSIDE RECORDS SUMMARY | 2025-05-14 09:48 | XMS_ITS | Clinical Summary ---
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
== END 2025-05-14 09:19 | disposition home or self-care (01) ==
PROVIDERS: PCP Nurse Practitioner Family; Visit Provider Nurse Practitioner Family
DX: Z12.31 Encounter for screening mammogram for malignant neoplasm of breast (principal)
CPT/HCPCS: 77063; 77067